=== PATIENT | female | born 1965 | race Caucasian/White ===

== ENCOUNTER → 2016-12-11 | Outpatient (CLI) | payer OTHER ==
[~2016-12-11] MED LIST: CELE20TA PO; CYCL10TA PO; GABA-279 PO; IBUP80TA PO; TRAZ50TA4 PO
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
== END ==
LOC: M PAIN 10:20
PROVIDERS: ATTEND Nurse Practitioner Family
DX: Z09 Encounter for follow-up examination after completed treatment for conditions other than malignant neoplasm (principal); M79.7 Fibromyalgia; M54.5 Low back pain; M50.30 Other cervical disc degeneration, unspecified cervical region; M50.20 Other cervical disc displacement, unspecified cervical region; E03.9 Hypothyroidism, unspecified; Z78.0 Asymptomatic menopausal state; M19.90 Unspecified osteoarthritis, unspecified site; G47.30 Sleep apnea, unspecified; Z88.5 Allergy status to narcotic agent; Z88.8 Allergy status to other drugs, medicaments and biological substances; Z79.899 Other long term (current) drug therapy; Z91.411 Personal history of adult psychological abuse; Z91.410 Personal history of adult physical and sexual abuse

== ENCOUNTER → 2016-12-31 | Outpatient (REF) | payer OTHER | LOC: M LAB REF 16:35 | PROVIDERS: ATTEND Physician Assistant | DX: N39.0 Urinary tract infection, site not specified (principal) ==

== ENCOUNTER → 2017-02-05 | Outpatient (REF) | payer OTHER ==
[2017-02-05 12:13] LABS: BASO % 0.7 % (0.0-1.0); EOS # 0.2 K/mm3 (0.0-0.50); EOS % 2.8 % (0.0-3.0); LARGE UNSTAINED CELL # 0.1 K/mm3 (0.0-0.4); LYMPH # 1.9 K/mm3 (1.5-4.5); LYMPH % 28.7 % (24.0-44.0); MEAN CORPUSCULAR HEMOGLOBIN 28.1 pg (27.0-33.0); MEAN CORPUSCULAR HGB CONC 32.1 g/dl (32.0-36.5); MEAN CORPUSCULAR VOLUME 87.7 fl (80.0-96.0); MONO # 0.4 K/mm3 (0.0-0.8); MONO % 5.3 % (0.0-5.0); NEUTROPHILS % 60.5 % (36.0-66.0); PLATELET COUNT, AUTOMATED 314 k/mm3 (150-450); RED CELL DISTRIBUTION WIDTH 14.4 % (11.5-14.5); WHITE BLOOD COUNT 6.6 K/mm3 (4.0-10.0)
[2017-02-05 12:44] LABS: ANION GAP 4 MEQ/L (8-16); BLOOD UREA NITROGEN 11 MG/DL (7-18); CALCIUM LEVEL 9.2 MG/DL (8.5-10.1); CARBON DIOXIDE LEVEL 30 MEQ/L (21-32); CHLORIDE LEVEL 106 MEQ/L (98-107); CREATININE FOR GFR 0.93 MG/DL (0.55-1.02); FREE T4 0.79 NG/DL (0.76-1.46); GLOMERULAR FILTRATION RATE > 60.0 (>51); GLUCOSE, FASTING 86 MG/DL (70-105); POTASSIUM SERUM 4.6 MEQ/L (3.5-5.1); SODIUM LEVEL 140 MEQ/L (136-145)
[2017-02-05 14:26] LABS: HIV SCRN NEGATIVE (NEGATIVE); HIV SCRN1 NEGATIVE (NEGATIVE)
[2017-02-05 14:27] LABS: CONTROL LINE INT CTR LINE PRESENT
== END ==
LOC: M SFHCPLAZ 08:50
PROVIDERS: ATTEND Nurse Practitioner Family
DX: G47.33 Obstructive sleep apnea (adult) (pediatric) (principal); E03.9 Hypothyroidism, unspecified; Z20.6 Contact with and (suspected) exposure to human immunodeficiency virus [HIV]

== ENCOUNTER → 2017-03-14 | Outpatient (CLI) | payer OTHER ==
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
== END ==
LOC: M PAIN 11:00
PROVIDERS: ATTEND Nurse Practitioner Family
DX: M79.1 Myalgia (principal); M54.5 Low back pain; M50.30 Other cervical disc degeneration, unspecified cervical region; E32.9 Disease of thymus, unspecified; E03.9 Hypothyroidism, unspecified; Z79.899 Other long term (current) drug therapy; Z88.8 Allergy status to other drugs, medicaments and biological substances; G47.33 Obstructive sleep apnea (adult) (pediatric)

== ENCOUNTER → 2017-06-12 | Outpatient (CLI) | payer OTHER ==
[~2017-06-12] MED LIST changes: +TRAZ50TA11 PO; -TRAZ50TA4 PO
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
== END ==
LOC: M PAIN 15:00
PROVIDERS: ATTEND Nurse Practitioner Family
DX: M79.1 Myalgia (principal); M54.5 Low back pain; M50.30 Other cervical disc degeneration, unspecified cervical region; Z79.899 Other long term (current) drug therapy; F17.210 Nicotine dependence, cigarettes, uncomplicated; Z88.6 Allergy status to analgesic agent; Z88.8 Allergy status to other drugs, medicaments and biological substances; Z88.5 Allergy status to narcotic agent

== ENCOUNTER → 2017-08-06 | Outpatient (CLI) | payer OTHER ==
[~2017-08-06] MED LIST changes: +BUPIVACAINE HCL 0.25% 10 ML VIAL As Ordered ONE; +BUPIVACAINE HCL 0.25% 30 ML VIAL As Ordered ONE; +TRIAMCINOLONE ACETONIDE SUSP 40 MG/ML VIAL (J3301) As Ordered ONE
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
== END ==
LOC: M PAIN 15:15
PROVIDERS: ATTEND Anesthesiology
DX: G89.29 Other chronic pain (principal); M79.1 Myalgia; Z79.899 Other long term (current) drug therapy; G47.30 Sleep apnea, unspecified; M19.90 Unspecified osteoarthritis, unspecified site; E03.9 Hypothyroidism, unspecified; F32.9 Major depressive disorder, single episode, unspecified; M50.30 Other cervical disc degeneration, unspecified cervical region; Z88.6 Allergy status to analgesic agent; Z88.5 Allergy status to narcotic agent; Z20.6 Contact with and (suspected) exposure to human immunodeficiency virus [HIV]
CPT/HCPCS: 20553; J3301

== ENCOUNTER → 2017-08-23 | Outpatient (REF) | payer OTHER ==
[~2017-08-23] MED LIST changes: -BUPIVACAINE HCL 0.25% 10 ML VIAL As Ordered ONE; -BUPIVACAINE HCL 0.25% 30 ML VIAL As Ordered ONE; -TRIAMCINOLONE ACETONIDE SUSP 40 MG/ML VIAL (J3301) As Ordered ONE
== END ==
LOC: M SFHCPLAZ 11:49
PROVIDERS: ATTEND Family Medicine
DX: D23.72 Other benign neoplasm of skin of left lower limb, including hip (principal)

== ENCOUNTER → 2017-09-12 | Outpatient (CLI) | payer OTHER ==
[2017-09-12 15:05] LABS: BASO % 0.6 % (0.0-1.0); EOS # 0.1 10^3/uL (0.0-0.50); EOS % 1.1 % (0.0-3.0); IMMATURE GRANULOCYTE % 0.1 % (0-0); LYMPH # 1.6 10^3/uL (1.5-4.5); LYMPH % 22.8 % (24.0-44.0); MEAN CORPUSCULAR HEMOGLOBIN 30.1 pg (27.0-33.0); MEAN CORPUSCULAR HGB CONC 33.4 g/dl (32.0-36.5); MEAN CORPUSCULAR VOLUME 90.2 fl (80.0-96.0); MONO # 0.4 10^3/uL (0.0-0.8); MONO % 5.3 % (0.0-5.0); NEUTROPHILS # 5.1 10^3/uL (1.8-7.7); NEUTROPHILS % 70.1 % (36.0-66.0); PLATELET COUNT, AUTOMATED 349 10^3/uL (150-450); RED CELL DISTRIBUTION WIDTH 14.2 % (11.5-14.5); WHITE BLOOD COUNT 7.2 10^3/uL (4.0-10.0)
[2017-09-12 15:28] LABS: ALBUMIN/GLOBULIN RATIO 1.18 (1.00-1.93); ALKALINE PHOSPHATASE 91 U/L (45-117); ALT/SGPT 23 U/L (12-78); ANION GAP 8 MEQ/L (8-16); AST/SGOT 9 U/L (15-37); BILIRUBIN,TOTAL 0.2 MG/DL (0.2-1.0); BLOOD UREA NITROGEN 9 MG/DL (7-18); CALCIUM LEVEL 9.2 MG/DL (8.5-10.1); CARBON DIOXIDE LEVEL 25 MEQ/L (21-32); CHLORIDE LEVEL 105 MEQ/L (98-107); CHOLESTEROL LEVEL 234 MG/DL (<200); CREATININE FOR GFR 0.87 MG/DL (0.55-1.02); GLOMERULAR FILTRATION RATE > 60.0 (>51); GLUCOSE, FASTING 106 MG/DL (70-105); POTASSIUM SERUM 4.3 MEQ/L (3.5-5.1); SODIUM LEVEL 138 MEQ/L (136-145); TOTAL PROTEIN 7.4 GM/DL (6.4-8.2); TRIGLYCERIDES LEVEL 383 MG/DL (<150)
== END ==
LOC: M LAB 14:16
PROVIDERS: ATTEND Nurse Practitioner Family
DX: Z20.6 Contact with and (suspected) exposure to human immunodeficiency virus [HIV] (principal); R53.83 Other fatigue; Z13.220 Encounter for screening for lipoid disorders; Z13.1 Encounter for screening for diabetes mellitus

== ENCOUNTER → 2017-10-14 | Outpatient (REF) | payer OTHER | LOC: M SFHCPLAZ 08:36 | PROVIDERS: ATTEND Nurse Practitioner Family | DX: Z20.6 Contact with and (suspected) exposure to human immunodeficiency virus [HIV] (principal); E03.9 Hypothyroidism, unspecified; Z53.9 Procedure and treatment not carried out, unspecified reason ==

== ENCOUNTER → 2017-10-23 | Outpatient (CLI) | payer OTHER ==
[2017-10-23 14:27] LABS: ALBUMIN 3.8 GM/DL (3.2-5.2); ALBUMIN/GLOBULIN RATIO 1.15 (1.00-1.93); ALKALINE PHOSPHATASE 79 U/L (45-117); ALT/SGPT 26 U/L (12-78); ANION GAP 7 MEQ/L (8-16); AST/SGOT 16 U/L (7-37); BILIRUBIN,TOTAL 0.3 MG/DL (0.2-1.0); BLOOD UREA NITROGEN 10 MG/DL (7-18); CARBON DIOXIDE LEVEL 26 MEQ/L (21-32); CHLORIDE LEVEL 105 MEQ/L (98-107); CHOLESTEROL LEVEL 176 MG/DL (<200); CREATININE FOR GFR 0.94 MG/DL (0.55-1.02); FREE T4 0.77 NG/DL (0.76-1.46); GLOMERULAR FILTRATION RATE > 60.0 (>51); GLUCOSE, FASTING 84 MG/DL (70-105); POTASSIUM SERUM 4.3 MEQ/L (3.5-5.1); SODIUM LEVEL 138 MEQ/L (136-145); TOTAL PROTEIN 7.1 GM/DL (6.4-8.2); TRIGLYCERIDES LEVEL 208 MG/DL (<150)
== END ==
LOC: M LAB 13:04
PROVIDERS: ATTEND Nurse Practitioner Family
DX: Z20.6 Contact with and (suspected) exposure to human immunodeficiency virus [HIV] (principal)

== ENCOUNTER → 2017-11-11 | Outpatient (CLI) | payer OTHER ==
--- NOTE | 2017-11-13 01:44 | ECWPNPC ---
PATIENT NAME: ARNAV SPEARS : 1965 GENDER: FEMALE VISIT DATE: 11/11/2017 DISCHARGE DATE: 11/11/17 1222 VISIT LOCKED DATE TIME: PHYSICIAN: DIANNA YOUNG RESOURCE: DIANNA YOUNG REASON FOR APPOINTMENT 1. BACK AND SHOULDER HISTORY OF PRESENT ILLNESS HISTORY OF PRESENT ILLNESS: PAIN THE PATIENT DESCRIBES THE PAIN... FALL RISK SCREENING: SCREENING :NO FALLS IN THE PAST YEAR TODAY'S VISIT: NOTES: RATES PAIN TODAY 5/10. IS S/P TPI 08/06/17 TO BILATERAL SHOULDERS AND LEFT THORACIC REGION. DESCRIBES PAIN ACHING, SHARP TENDER , THROBBING AND SHOOTING. THIS WAS HELPFUL AND IMPROVED FLEXIBILITY. CURRENTLY NOTES INCREASED JOINT SWELLING AND JOINT PAIN. KNEES ARE THE WORST, FOLLOWED BY HIPS AND LOW BACK. CURRENT MEDICATIONS TAKING ATORVASTATIN CALCIUM 20 MG TABLET 1 TABLET ORALLY ONCE A DAY TAKING TRUVADA 200-300 MG TABLET 1 TAB ORALLY DAILY TAKING LEVOTHYROXINE SODIUM 75 MCG TABLET 1 TABLET ON AN EMPTY STOMACH IN THE MORNING ORALLY ONCE A DAY TAKING COLACE 100 MG CAPSULE 1 CAPSULE NEEDED ORALLY TWICE A DAY TAKING FLEXERIL 10 MG TABLET 1 TABLET ORALLY BEFORE BEDTIME NEEDED TAKING BETAMETHASONE VALERATE 0.1 % OINTMENT 1 APPLICATION TO AFFECTED AREA EXTERNALLY ONCE A DAY TAKING MELOXICAM 7.5 MG TABLET 1 TABLET ORALLY ONCE A DAY TAKING GABAPENTIN 300 MG TABLET 1 TABLET ORALLY BEFORE BEDTIME TAKING CELEXA 40 MG TABLET 1 TABLET ORALLY ONCE A DAY MEDICATION LIST REVIEWED AND RECONCILED WITH THE PATIENT PAST MEDICAL HISTORY SLEEP APNEA: BIPAP: ANAMIKA VIGIL PULMONOLOGY FIBROMYALGIA HX DYSPLASIA BENIGN RIGHT AND LEFT BREAST LUMPS RUPTURED LEFT OVARIAN CYST (08/13) PERIMENOPAUSE 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 BULGING DISCS IN THE NECK ARTHRITIS HYPOTHYROIDISM ALLERGIES NAPROXEN: HIVES: ALLERGY EFFEXOR XR: DIZZINESS, HAS, FLUSHING, NAUSEA, SHAKINESS : SIDE EFFECTS VICODIN: NAUSEA/VOMITING: SIDE EFFECTS SOCIAL HISTORY GENERAL: TOBACCO USE ARE YOU A:CURRENT SMOKER ARE YOU INTERESTED IN QUITTING?NOT READY TO QUIT COUNSELED THE PATIENT ON SMOKING EFFECTS, EDUCATION [id number]/29/2017 HOW MANY CIGARETTES A DAY DO YOU SMOKE?6-10 HOW SOON AFTER YOU WAKE UP DO YOU SMOKE YOUR FIRST CIGARETTE?WITHIN 5 MIN HOW OFTEN DO YOU SMOKE CIGARETTES?EVERY DAY PATIENT COUNSELED ON THE DANGERS OF TOBACCO USE AND URGED TO QUIT:10/30/2017 LUNG CANCER SCREENING SMOKING STATUS:CURRENT SMOKER IS THE PATIENT BETWEEN THE AGE OF 54 AND 76?NO BMI CARE GOAL FOLLOW-UP ABOVE NORMAL BMI FOLLOW-UPLIFESTYLE EDUCATION REGARDING DIET ALCOHOL SCREENING DID YOU HAVE A DRINK CONTAINING ALCOHOL IN THE PAST YEAR?YES HOW OFTEN DID YOU HAVE SIX OR MORE DRINKS ON ONE OCCASION IN THE PAST YEAR?NEVER (0 POINTS) HOW MANY DRINKS DID YOU HAVE ON A TYPICAL DAY WHEN YOU WERE DRINKING IN THE PAST YEAR?1 OR 2 (0 POINTS) HOW OFTEN DID YOU HAVE A DRINK CONTAINING ALCOHOL IN THE PAST YEAR?MONTHLY OR LESS (1 POINT) POINTS1 INTERPRETATIONNEGATIVE RECREATIONAL DRUG USE DRUG USE?YES MARIJUANA, DAILY AT BEDTIME CAFFEINE CAFFEINE USE?YES ICED TEA ALL DAY OCCASIONAL COFFEE SEXUAL HX HAD SEX IN THE LAST 12 MONTHS (VAGINAL, ORAL, OR ANAL)?YES WITHMEN ONLY USE PROTECTION?NO PREVENTION STRATEGIES DISCUSSED:OTHER HAVE YOU EVER HAD AN STD?NO HIV / HEP-C SCREENING HIV TEST OFFERED TO PATIENT:YES DATE OFFERED:12/20/2016 TEST ACCEPTED:NO HAS BEEN TESTED HEP-C TEST OFFERED TO PATIENT:YES DATE OFFERED:12/20/2016 REASON: SEES DR. 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 DIET: REGULAR. EXERCISE: WALKS. MARITAL STATUS: SINGLE. OTHERS AT HOME: SIGNIFICANT OTHER. CHRISTIANITY [id number] TAOIST LANGUAGE LANGUAGES SPOKEN:SAMI LEARNING BARRIERS / SPECIAL NEEDS CHANGE FROM LAST VISIT?NO BARRIERS TO LEARNING?NO HEARING IMPAIRED?NO VISION IMPAIRED?YES :CORRECTIVE LENSES COGNITIVELY IMPAIRED?NO READINESS TO LEARN?YES LEARNING PREFERENCES?NO LEARNING CAPABILITIES PRESENT?YES EMOTIONAL BARRIERS?NO SPECIAL DEVICES?YES :BRACE LEFT KNEE BRACE WAXER NEEDED?NO NEW PATIENT PAIN DIARY TODAY'S VISIT NOTES, FROM 0-10, WHAT LEVEL IS YOUR PAIN TODAY? 0, TODAY'S VISIT NOTES, FROM 0-10, WHAT LEVEL IS YOUR PAIN TODAY? 0, TODAY'S VISIT NOTES, FROM 0-10, WHAT LEVEL IS YOUR PAIN TODAY? 0. PAIN CLINIC PFS, CLERGY, PUBLIC HEALTH REFERRALS PFS REFERRAL NEEDED?NO CLERGY REFERRAL NEEDED?NO PUBLIC HEALTH REFERRAL NEEDED?NO HAS THE PATIENT BEEN EDUCATED REGARDING HIS/HER PLAN OF CARE?YES HAS THE PATIENT BEEN EDUCATED REGARDING PAIN, THE RISK FOR PAIN, THE IMPORTANCE OF EFFECTIVE PAIN MANAGEMENT, AND THE PAIN ASSESSMENT PROCESS?YES REVIEW OF SYSTEMS REVIEWED BY: PROVIDER: . CONSTITUTIONAL: ANY CHANGE IN YOUR MEDICAL CONDITION? NO . CHILLS NO . FEVER NO . INFECTION: DO YOU HAVE NEW INFECTIONS? NO . DO YOU HAVE HISTORY OF MRSA? NO . MUSCULOSKELETAL: ANY NEW PATTERNS OF PAIN OR NUMBNESS? NO . GASTROENTEROLOGY: ANY NEW CHANGE IN BOWEL CONTROL? NO . GENITOURINARY: ANY NEW CHANGE IN BLADDER CONTROL? NO . IS THERE A CHANCE YOU COULD BE ? NO . HEMATOLOGY/LYMPH: DO YOU TAKE ANY BLOOD THINNERS? (FOR EXAMPLE- COUMADIN, PLAVIX, AGGRENOX, PLATEL, PRADAXA, OR XARELTO) NO . WHEN WAS YOUR LAST DOSE? DATE: TIME: . NEUROLOGY: HAVE YOU FALLEN IN THE PAST 6 MONTHS? NO . ANY NEW EXTREMITY NUMBNESS OR WEAKNESS? NO . CARDIOLOGY: DO YOU HAVE A PACEMAKER OR DEFIBRILLATOR? NO . RESPIRATORY: HAVE YOU BEEN SICK IN THE PAST WEEK? NO . FEVER NO . FLU LIKE SYMPTOMS? NO . COUGH NO . INTEGUMENTARY: DO YOU HAVE ANY RASHES OR OPEN SORES? NO . ALLERGIC/IMMUNO: ARE YOU ALLERGIC TO SHELLFISH OR IV DYE? NO . ANY NEW ALLERGIES? NO . PSYCHIATRIC: DO YOU HAVE THOUGHTS OF HURTING YOURSELF OR SOMEONE ELSE? NO . ARE YOU ABUSED, NEGLECTED, OR IN AN UNSAFE ENVIRONMENT? NO . ENDOCRINOLOGY: ARE YOU DIABETIC? NO . OTHER: DO YOU NEED ANY PRESCRIPTIONS? YES . IF YES, PLEASE LIST: GABAPENTIN . ANY NEW PROBLEMS WITH YOUR MEDICATIONS? NO . WHEN DID YOU LAST EAT? ____ . WHEN DID YOU LAST DRINK? ____ . WHAT DID YOU LAST DRINK? ____ . NAME OF PERSON DRIVING YOU HOME? ____ . DO YOU HAVE ANY OTHER QUESTIONS OR CONCERNS INCREASE LOW BACK PAIN AND SORE / PAIN IN HIPS . VITAL SIGNS WT 169.4 LBS, HT 64 IN, BMI 29.07 INDEX, BP 140/82 MM HG, HR 63 /MIN, RR 18 /MIN, TEMP 97.2 F, OXYGEN SAT % 94%, NA INITIALS TL 1145. EXAMINATION GENERAL EXAMINATION: PSYCHALERT , ORIENTED X 3 , APPROPRIATE MOOD AND AFFECT . LUNGS:CLEAR TO AUSCULTATION BILATERALLY . HEART:HEART RATE REGULAR . MUSCULOSKELETAL:MUSCLE STRENGTH TESTING 5/5 MILD TENDERNESSS OVER LUMBAR SPINOUS PROCESSES. MINIMAL TENDERNESS AND TIGHTNESS ALONG THORACIC PARAVERTEBRAL MUSCLES. , TRIGGER POINTS AND TIGHT FIBROUS BANDS IDENTIFIED OVER LUMBAR PARAVERTEBRAL MUSCLES AND ACROSS THE SACRUM. . JOINTS:RIGHT , KNEE , PAIN , SWELLING ALONG MEDIAL ASPECT.. ASSESSMENTS MYALGIA - M79.1 (PRIMARY) LOW BACK PAIN - M54.5 DEGENERATIVE DISC DISEASE, CERVICAL - M50.30 TREATMENT MYALGIA REFILL GABAPENTIN TABLET, 300 MG, 1 TABLET, ORALLY, BID, 30 DAY(S), 60 TABLET, REFILLS 3 TRIGGER POINT 3 + DIANNA YOST 11/11/2017 12:10:06 PM > LOW BACK NOTES: CONTINUE WITH ORTHOPEDICS - DO PHYSICAL THERAPY FOR KNEES. PREVENTIVE MEDICINE REVIEWED PRE PROCEDURE CARE WITH UNDERSTANDING EXPRESSED. PT HAS HAD TPI BEFORE AND KNOWS WHAT TO EXPECT. DISPOSITION & COMMUNICATION FOLLOW UP AFTER INJECTIONS (REASON: CHECK AUTH FOR TPI/BACK) ELECTRONICALLY SIGNED BY URSZULA MARTINEZ ON 11/11/2017 AT 12:51 PM EST DISCLAIMER : THIS IS A VISIT SUMMARY EXTRACTED FROM THE [employer] CHART. IT IS NOT A COPY OF THE [employer] PROGRESS NOTE. DAVONTE
== END ==
LOC: M PAIN 11:30
PROVIDERS: ATTEND Nurse Practitioner Family
DX: G89.29 Other chronic pain (principal); M54.5 Low back pain; M50.30 Other cervical disc degeneration, unspecified cervical region; M79.1 Myalgia; F32.9 Major depressive disorder, single episode, unspecified; G47.33 Obstructive sleep apnea (adult) (pediatric); E03.9 Hypothyroidism, unspecified; E78.5 Hyperlipidemia, unspecified; F17.210 Nicotine dependence, cigarettes, uncomplicated; Z88.5 Allergy status to narcotic agent; Z88.8 Allergy status to other drugs, medicaments and biological substances; Z79.899 Other long term (current) drug therapy

== ENCOUNTER → 2017-12-03 | Outpatient (CLI) | payer OTHER ==
[~2017-12-03] MED LIST changes: +BUPIVACAINE HCL 0.25% 10 ML VIAL As Ordered; +BUPIVACAINE HCL 0.25% 30 ML VIAL As Ordered; -CELE20TA PO; -CYCL10TA PO; -GABA-279 PO; -IBUP80TA PO; -TRAZ50TA11 PO; +TRIAMCINOLONE ACETONIDE SUSP 40 MG/ML VIAL (J3301) As Ordered; +diazePAM 5 MG TAB As Ordered; +oxyCODONE 5MG TAB As Ordered
== END ==
LOC: M PAIN 13:45
DX: G89.29 Other chronic pain (principal); M54.2 Cervicalgia; M54.5 Low back pain; M79.1 Myalgia; G47.30 Sleep apnea, unspecified; M19.90 Unspecified osteoarthritis, unspecified site; E03.9 Hypothyroidism, unspecified; F17.210 Nicotine dependence, cigarettes, uncomplicated; Z88.5 Allergy status to narcotic agent; Z88.8 Allergy status to other drugs, medicaments and biological substances; Z79.899 Other long term (current) drug therapy
CPT/HCPCS: J3301

== ENCOUNTER → 2017-12-26 | Outpatient (CLI) | payer OTHER | LOC: M PAIN 13:00 | DX: M54.5 Low back pain (principal); M50.30 Other cervical disc degeneration, unspecified cervical region; M79.1 Myalgia; G47.30 Sleep apnea, unspecified; M19.90 Unspecified osteoarthritis, unspecified site; E03.9 Hypothyroidism, unspecified; F17.210 Nicotine dependence, cigarettes, uncomplicated; Z88.5 Allergy status to narcotic agent; Z88.8 Allergy status to other drugs, medicaments and biological substances; Z79.899 Other long term (current) drug therapy; Z91.411 Personal history of adult psychological abuse; Z91.410 Personal history of adult physical and sexual abuse | CPT/HCPCS: G0463 ==

== ENCOUNTER → 2018-01-14 | Outpatient (REF) | payer OTHER ==
[2018-01-14 19:37] LABS: APPEARANCE, URINE CLOUDY (CLEAR); BACTERIA, URINE AUTO 1+ (NEGATIVE); BILIRUBIN, URINE AUTO NEGATIVE (NEGATIVE); BLOOD, URINE BLOOD 3+ (NEGATIVE); COLOR, URINE YELLOW (YELLOW); GLUCOSE, URINE (UA) AUTO NEGATIVE (NEGATIVE); KETONE, URINE AUTO NEGATIVE (NEGATIVE); LEUKOCYTE ESTERASE, URINE AUTO 3+ (NEGATIVE); MUCUS, URINE SMALL (NEGATIVE); NITRITE, URINE AUTO NEGATIVE (NEGATIVE); PROTEIN, URINE AUTO 1+ mg/dL (NEGATIVE); RBC, URINE AUTO TNTC /HPF (0-3); SPECIFIC GRAVITY URINE AUTO 1.014 (1.002-1.035); SQUAMOUS EPITHELIAL CELL UR AU 1 /HPF (0-6); UROBILINOGEN, URINE AUTO 0.2 mg/dL (0.0-2.0); WBC, URINE AUTO TNTC /HPF (0-3)
== END ==
LOC: M LAB REF 16:54
DX: N39.0 Urinary tract infection, site not specified (principal)
CPT/HCPCS: 81001

== ENCOUNTER → 2018-01-22 | Outpatient (REF) | payer OTHER ==
[2018-01-22 14:21] LABS: HIV 1&2 SCREEN CENTAUR NEGATIVE (NEGATIVE)
[2018-01-22 14:40] LABS: ALBUMIN 3.9 GM/DL (3.2-5.2); ALBUMIN/GLOBULIN RATIO 1.34 (1.00-1.93); ALKALINE PHOSPHATASE 85 U/L (45-117); ALT/SGPT 42 U/L (12-78); ANION GAP 7 MEQ/L (8-16); AST/SGOT 31 U/L (7-37); BILIRUBIN,TOTAL 0.2 MG/DL (0.2-1.0); BLOOD UREA NITROGEN 17 MG/DL (7-18); CALCIUM LEVEL 8.9 MG/DL (8.5-10.1); CARBON DIOXIDE LEVEL 30 MEQ/L (21-32); CHLORIDE LEVEL 102 MEQ/L (98-107); CREATININE FOR GFR 0.81 MG/DL (0.55-1.30); FREE T4 0.84 NG/DL (0.76-1.46); GLOMERULAR FILTRATION RATE > 60.0 (>51); GLUCOSE, FASTING 88 MG/DL (70-100); POTASSIUM SERUM 4.3 MEQ/L (3.5-5.1); SODIUM LEVEL 139 MEQ/L (136-145); TOTAL PROTEIN 6.8 GM/DL (6.4-8.2)
== END ==
LOC: M SFHCPLAZ 09:46
DX: E78.5 Hyperlipidemia, unspecified (principal); E03.9 Hypothyroidism, unspecified; Z20.6 Contact with and (suspected) exposure to human immunodeficiency virus [HIV]
CPT/HCPCS: 84443

== ENCOUNTER → 2018-03-25 | Outpatient (REF) | payer OTHER ==
[2018-03-27 14:13] LABS: HPV HYBRID CAPTURE II Negative (Negative)
== END ==
LOC: M SFHCWAGY 15:21
DX: Z12.4 Encounter for screening for malignant neoplasm of cervix (principal)

== ENCOUNTER → 2018-03-25 | Outpatient (CLI) | payer OTHER | LOC: M WHC 14:28 | DX: Z12.31 Encounter for screening mammogram for malignant neoplasm of breast (principal) | CPT/HCPCS: 77067 ==

== ENCOUNTER → 2018-04-18 | Outpatient (REF) | payer OTHER ==
[2018-04-18 18:32] LABS: APPEARANCE, URINE HAZY (CLEAR); BACTERIA, URINE AUTO 1+ (NEGATIVE); BILIRUBIN, URINE AUTO NEGATIVE (NEGATIVE); BLOOD, URINE BLOOD NEGATIVE (NEGATIVE); COLOR, URINE YELLOW (YELLOW); GLUCOSE, URINE (UA) AUTO NEGATIVE (NEGATIVE); KETONE, URINE AUTO NEGATIVE (NEGATIVE); LEUKOCYTE ESTERASE, URINE AUTO TRACE (NEGATIVE); MUCUS, URINE SMALL (NEGATIVE); NITRITE, URINE AUTO NEGATIVE (NEGATIVE); PROTEIN, URINE AUTO NEGATIVE (NEGATIVE); RBC, URINE AUTO 2 /HPF (0-3); SPECIFIC GRAVITY URINE AUTO 1.012 (1.002-1.035); SQUAMOUS EPITHELIAL CELL UR AU 3 /HPF (0-6); UROBILINOGEN, URINE AUTO 0.2 mg/dL (0.0-2.0); WBC, URINE AUTO 11 /HPF (0-3)
== END ==
LOC: M LAB REF 16:25
DX: N39.0 Urinary tract infection, site not specified (principal)
CPT/HCPCS: 81001

== ENCOUNTER → 2018-04-24 | Outpatient (CLI) | payer OTHER | LOC: M PAIN 11:00 | DX: M79.1 Myalgia (principal); M54.5 Low back pain; M50.30 Other cervical disc degeneration, unspecified cervical region; G47.30 Sleep apnea, unspecified; M19.90 Unspecified osteoarthritis, unspecified site; E03.9 Hypothyroidism, unspecified; F17.210 Nicotine dependence, cigarettes, uncomplicated; Z79.899 Other long term (current) drug therapy; Z88.5 Allergy status to narcotic agent; Z88.8 Allergy status to other drugs, medicaments and biological substances | CPT/HCPCS: G0463 ==

== ENCOUNTER → 2018-05-23 | Outpatient (CLI) | payer OTHER ==
[~2018-05-23] MED LIST changes: -diazePAM 5 MG TAB As Ordered; -oxyCODONE 5MG TAB As Ordered
== END ==
LOC: M PAIN 10:30
DX: G89.29 Other chronic pain (principal); M79.1 Myalgia; M54.2 Cervicalgia; M25.511 Pain in right shoulder; M25.512 Pain in left shoulder; M54.6 Pain in thoracic spine; M54.5 Low back pain; G47.30 Sleep apnea, unspecified; M19.90 Unspecified osteoarthritis, unspecified site; E03.9 Hypothyroidism, unspecified; F17.210 Nicotine dependence, cigarettes, uncomplicated; Z79.899 Other long term (current) drug therapy; Z88.5 Allergy status to narcotic agent; Z88.8 Allergy status to other drugs, medicaments and biological substances
CPT/HCPCS: J3301

== ENCOUNTER → 2018-05-23 | Outpatient (CLI) | payer OTHER ==
[2018-05-23 14:29] LABS: CHOLESTEROL LEVEL 140 MG/DL (<200); CHOLESTEROL RISK RATIO 3.414 (<5); HDL CHOLESTEROL 41 MG/DL (>40); LDL CHOLESTEROL 53.4 MG/DL (<100); NON-HDL-C 99 MG/DL; TRIGLYCERIDES LEVEL 228 MG/DL (<150)
[2018-05-23 15:10] LABS: HIV 1&2 SCREEN CENTAUR NEGATIVE (NEGATIVE)
[2018-05-23 15:57] LABS: BASO # 0.1 10^3/uL (0.0-0.2); BASO % 0.6 % (0.0-1.0); EOS # 0.2 10^3/uL (0.0-0.50); EOS % 2.4 % (0.0-3.0); HEMATOCRIT 37.4 % (36.0-47.0); HEMOGLOBIN 12.4 g/dl (12.0-15.5); IMMATURE GRANULOCYTE % 0.4 % (0-3.0); LYMPH # 1.6 10^3/uL (1.5-4.5); LYMPH % 20.3 % (24.0-44.0); MEAN CORPUSCULAR HEMOGLOBIN 30.5 pg (27.0-33.0); MEAN CORPUSCULAR HGB CONC 33.2 g/dl (32.0-36.5); MEAN CORPUSCULAR VOLUME 92.1 fl (80.0-96.0); MONO # 0.4 10^3/uL (0.0-0.8); MONO % 5.1 % (0.0-5.0); NEUTROPHILS # 5.7 10^3/uL (1.8-7.7); NEUTROPHILS % 71.2 % (36.0-66.0); PLATELET COUNT, AUTOMATED 319 10^3/uL (150-450); RED BLOOD COUNT 4.06 10^6/uL (4.00-5.40); RED CELL DISTRIBUTION WIDTH 13.3 % (11.5-14.5)
== END ==
LOC: M LAB 13:07
DX: R07.9 Chest pain, unspecified (principal)
CPT/HCPCS: 93005

== ENCOUNTER → 2018-10-06 | Outpatient (CLI) | payer OTHER | LOC: M PAIN 11:00 | DX: M79.18 Myalgia, other site (principal); M54.5 Low back pain; M50.30 Other cervical disc degeneration, unspecified cervical region; M19.90 Unspecified osteoarthritis, unspecified site; E03.9 Hypothyroidism, unspecified; G47.30 Sleep apnea, unspecified; F17.210 Nicotine dependence, cigarettes, uncomplicated; Z79.899 Other long term (current) drug therapy; Z88.5 Allergy status to narcotic agent; Z88.8 Allergy status to other drugs, medicaments and biological substances | CPT/HCPCS: G0463 ==

== ENCOUNTER → 2018-10-28 | Outpatient (CLI) | payer OTHER ==
[~2018-10-28] MED LIST changes: -BUPIVACAINE HCL 0.25% 10 ML VIAL As Ordered
== END ==
LOC: M PAIN 14:00
DX: M79.18 Myalgia, other site (principal); M54.6 Pain in thoracic spine; M54.5 Low back pain; E03.9 Hypothyroidism, unspecified; M19.90 Unspecified osteoarthritis, unspecified site; G47.30 Sleep apnea, unspecified; F17.210 Nicotine dependence, cigarettes, uncomplicated; Z79.899 Other long term (current) drug therapy; Z88.5 Allergy status to narcotic agent; Z88.8 Allergy status to other drugs, medicaments and biological substances
CPT/HCPCS: J3301

== ENCOUNTER → 2018-12-18 | Outpatient (CLI) | payer OTHER ==
[~2018-12-18] MED LIST changes: -BUPIVACAINE HCL 0.25% 30 ML VIAL As Ordered; +CELE20TA PO; +CYCL10TA PO; +GABA-1171 PO; +IBUP80TA PO; +TRAZ-160 PO; -TRIAMCINOLONE ACETONIDE SUSP 40 MG/ML VIAL (J3301) As Ordered
[2018-12-18 16:18] LABS: BASO % 0.5 % (0.0-1.0); EOS # 0.1 10^3/uL (0.0-0.50); EOS % 0.9 % (0.0-3.0); HEMATOCRIT 37.3 % (36.0-47.0); HEMOGLOBIN 12.7 g/dl (12.0-15.5); LYMPH # 1.3 10^3/uL (1.5-4.5); LYMPH % 14.7 % (24.0-44.0); MEAN CORPUSCULAR HEMOGLOBIN 31.3 pg (27.0-33.0); MEAN CORPUSCULAR VOLUME 91.9 fl (80.0-96.0); MONO # 0.5 10^3/uL (0.0-0.8); MONO % 5.9 % (0.0-5.0); NEUTROPHILS # 6.7 10^3/uL (1.8-7.7); NEUTROPHILS % 77.7 % (36.0-66.0); PLATELET COUNT, AUTOMATED 339 10^3/uL (150-450); RED BLOOD COUNT 4.06 10^6/uL (4.00-5.40); WHITE BLOOD COUNT 8.7 10^3/uL (4.0-10.0)
[2018-12-18 16:39] LABS: ALBUMIN 3.8 GM/DL (3.2-5.2); ALT/SGPT 18 U/L (12-78); BILIRUBIN,TOTAL 0.2 MG/DL (0.2-1.0); BLOOD UREA NITROGEN 10 MG/DL (7-18); CALCIUM LEVEL 8.8 MG/DL (8.5-10.1); CARBON DIOXIDE LEVEL 29 MEQ/L (21-32); CHLORIDE LEVEL 102 MEQ/L (98-107); CREATININE FOR GFR 0.84 MG/DL (0.55-1.30); GLOMERULAR FILTRATION RATE > 60.0 (>51); GLUCOSE, FASTING 88 MG/DL (70-100); POTASSIUM SERUM 4.7 MEQ/L (3.5-5.1); SODIUM LEVEL 139 MEQ/L (136-145); TOTAL PROTEIN 7.2 GM/DL (6.4-8.2)
[2018-12-19 11:11] LABS: HIV 1&2 SCREEN CENTAUR NEGATIVE (NEGATIVE)
== END ==
LOC: M LAB 15:33
PROVIDERS: ATTEND Internal Medicine Infectious Disease
DX: Z20.6 Contact with and (suspected) exposure to human immunodeficiency virus [HIV] (principal)

== ENCOUNTER → 2019-01-05 | Outpatient (CLI) | payer OTHER ==
--- NOTE | 2019-01-13 01:10 | ECWPNPC ---
PATIENT NAME: ARANV SPEARS : 1965 GENDER: FEMALE VISIT DATE: 01/05/2019 DISCHARGE DATE: 01/05/19 1532 VISIT LOCKED DATE TIME: PHYSICIAN: ASHISH LIMA RESOURCE: ASHISH LIMA REASON FOR APPOINTMENT 1. POST TPI HISTORY OF PRESENT ILLNESS HISTORY OF PRESENT ILLNESS: HERE FOR F/U OF CHRONIC LEFT SHOULDER AND LOW BACK PAIN.RATING PAIN VAS 7/10.HX OF CHRONIC LEFT SHOULDER/RHOMBOID PAIN.HAD TPI W/OUT STEROID RECENTLY WITHOUT IMPROVEMENT IN PAIN.HAS RESPONDED WELL TO TPI W STEROID IN PAST.OPTED OUT OF STEROID DUE TO BRONCHITIS AT TIME OF LAST INJECTION. PAIN THE PATIENT DESCRIBES THE PAIN... FALL RISK SCREENING: SCREENING :NO FALLS IN THE PAST YEAR CURRENT MEDICATIONS TAKING CYCLOBENZAPRINE HCL 10 MG TABLET 1 TABLET NEEDED ORALLY THREE TIMES A DAY TAKING MELOXICAM 7.5 MG TABLET 1 TABLET ORALLY ONCE A DAY TAKING LEVOTHYROXINE SODIUM 75 MCG TABLET 1 TABLET ORALLY ONCE A DAY TAKING CELEXA 40 MG TABLET 1 TABLET ORALLY ONCE A DAY TAKING ATORVASTATIN CALCIUM 20 MG TABLET 1 TABLET ORALLY ONCE A DAY TAKING TRUVADA 200-300 MG TABLET TAKE ONE TABLET BY MOUTH EVERY DAY TAKING GABAPENTIN 300 MG CAPSULE 1 CAPSULE ORALLY BID TAKING COLACE 100 MG CAPSULE 1 CAPSULE NEEDED ORALLY TWICE A DAY TAKING FLEXERIL 10 MG TABLET 2 TABLET ORALLY BEFORE BEDTIME NEEDED DISCONTINUED LEVOTHYROXINE SODIUM 50 MCG TABLET 1 TABLET ORALLY ONCE A DAY DISCONTINUED GABAPENTIN 300 MG TABLET 1 TABLET ORALLY BEFORE BEDTIME, NOTES: DUPLICATE DISCONTINUED TRUVADA 200-300 MG TABLET TAKE ONE TABLET BY MOUTH EVERY DAY ORALLY DAILY, NOTES: DUPLICATE MEDICATION LIST REVIEWED AND RECONCILED WITH THE PATIENT PAST MEDICAL HISTORY SLEEP APNEA: BIPAP: [employer], [employer]LO[employer] WORKER PULMONOLOGY FIBROMYALGIA HX DYSPLASIA BENIGN RIGHT AND LEFT BREAST LUMPS RUPTURED LEFT OVARIAN CYST (08/13) PERIMENOPAUSE 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 BULGING DISCS IN THE NECK ARTHRITIS HYPOTHYROIDISM SCOLIOSIS ALLERGIES NAPROXEN: HIVES: ALLERGY EFFEXOR XR: DIZZINESS, HAS, FLUSHING, NAUSEA, SHAKINESS : SIDE EFFECTS VICODIN: NAUSEA/VOMITING: SIDE EFFECTS SURGICAL HISTORY T & A BREAST BIOPSY, RIGHT X 2 BENIGN C SECTION ARTHROSCOPY KNEE SURGERY, LEFT LEEP BREAST BX, LEFT BENIGN DEVIATED SEPTUM REPAIR PALATEOPLASTY WISDOM TEETH SPINE INJECTIONS COLONOSCOPY 2012 FAMILY HISTORY FATHER: 72 YRS, SUICIDE, NO KNOWN MEDICAL PROBLEMS MOTHER: ALIVE 73 YRS, MIGRAINE, HTN, MELANOMA SIBLINGS: SISTER WITH MIGRAINE 2 BROTHER(S) , 1 SISTER(S) - HEALTHY. 1 SON(S) - HEALTHY. SOCIAL HISTORY GENERAL: TOBACCO USE ARE YOU A:CURRENT SMOKER ARE YOU INTERESTED IN QUITTING?NOT READY TO QUIT COUNSELED THE PATIENT ON SMOKING EFFECTS, EDUCATION [id number]/27/2018 HOW MANY CIGARETTES A DAY DO YOU SMOKE?6-10 HOW SOON AFTER YOU WAKE UP DO YOU SMOKE YOUR FIRST CIGARETTE?WITHIN 5 MIN HOW OFTEN DO YOU SMOKE CIGARETTES?EVERY DAY PATIENT COUNSELED ON THE DANGERS OF TOBACCO USE AND URGED TO QUIT:10/28/2018 LUNG CANCER SCREENING SMOKING STATUS:CURRENT SMOKER IS THE PATIENT BETWEEN THE AGE OF 54 AND 76?NO BMI CARE GOAL FOLLOW-UP ABOVE NORMAL BMI FOLLOW-UPLIFESTYLE EDUCATION REGARDING DIET ALCOHOL SCREENING DID YOU HAVE A DRINK CONTAINING ALCOHOL IN THE PAST YEAR?YES POINTS1 INTERPRETATIONNEGATIVE HOW OFTEN DID YOU HAVE A DRINK CONTAINING ALCOHOL IN THE PAST YEAR?MONTHLY OR LESS (1 POINT) HOW MANY DRINKS DID YOU HAVE ON A TYPICAL DAY WHEN YOU WERE DRINKING IN THE PAST YEAR?1 OR 2 (0 POINTS) HOW OFTEN DID YOU HAVE SIX OR MORE DRINKS ON ONE OCCASION IN THE PAST YEAR?NEVER (0 POINTS) RECREATIONAL DRUG USE DRUG USE?YES MARIJUANA, DAILY AT BEDTIME CAFFEINE CAFFEINE USE?YES ICED TEA ALL DAY OCCASIONAL COFFEE SEXUAL HX HAD SEX IN THE LAST 12 MONTHS (VAGINAL, ORAL, OR ANAL)?YES WITHMEN ONLY USE PROTECTION?NO PREVENTION STRATEGIES DISCUSSED:OTHER HAVE YOU EVER HAD AN STD?NO LMP:POST MENOPAUSE HIV / HEP-C SCREENING HIV TEST OFFERED TO PATIENT:YES DATE OFFERED:01/22/2018 TEST ACCEPTED:YES BROCHURE PROVIDED TO PATIENTYES HEP-C TEST OFFERED TO PATIENT:YES TEST ACCEPTED:NO REASON:PATIENT DECLINED PATIENT HAS BEEN TESTED HINDU [id number] BAHAI LANGUAGE LANGUAGES SPOKEN:ITALIAN EDUCATION LEVEL OF EDUCATION:FINISHED HIGH SCHOOL LEARNING BARRIERS / SPECIAL NEEDS CHANGE FROM LAST VISIT?NO BARRIERS TO LEARNING?NO HEARING IMPAIRED?NO VISION IMPAIRED?YES :CORRECTIVE LENSES COGNITIVELY IMPAIRED?NO READINESS TO LEARN?YES LEARNING PREFERENCES?NO LEARNING CAPABILITIES PRESENT?YES EMOTIONAL BARRIERS?NO SPECIAL DEVICES?YES :BRACE LEFT KNEE BRACE TRANSCRIPTER NEEDED?NO DOMESTIC VIOLENCE DO YOU FEEL SAFE IN YOUR ENVIRONMENT?YES OCCUPATION: UNEMPLOYED. DIET: REGULAR. EXERCISE: WALKS. MARITAL STATUS: SINGLE. OTHERS AT HOME: SIGNIFICANT OTHER. NEW PATIENT PAIN DIARY FROM 0-10, WHAT LEVEL IS YOUR PAIN TODAY?7 PAIN CLINIC PFS, CLERGY, PUBLIC HEALTH REFERRALS PFS REFERRAL NEEDED?NO CLERGY REFERRAL NEEDED?NO PUBLIC HEALTH REFERRAL NEEDED?NO HAS THE PATIENT BEEN EDUCATED REGARDING HIS/HER PLAN OF CARE?YES DOES USE HEAT FOR PAIN RELIEF BUT ONLY LAST A SHORT TIME. HAS THE PATIENT BEEN EDUCATED REGARDING PAIN, THE RISK FOR PAIN, THE IMPORTANCE OF EFFECTIVE PAIN MANAGEMENT, AND THE PAIN ASSESSMENT PROCESS?YES ADVANCE DIRECTIVE ADVANCE DIRECTIVE DISCUSSED WITH PATIENT:YES DECLINED INFO AND ASSISTANCE WITH HCP FORM AT THIS TIME. 01/05/19 REVIEWED WITH PT 01/05/19 3607 BV. HOSPITALIZATION/MAJOR DIAGNOSTIC PROCEDURE RUPTURED OVARIAN CYST 08/09/12 RELATED TO SURGERY REVIEW OF SYSTEMS REVIEWED BY: PROVIDER: ASHISH TREJO . CONSTITUTIONAL: ANY CHANGE IN YOUR MEDICAL CONDITION? NO . CHILLS NO . FEVER NO . INFECTION: DO YOU HAVE NEW INFECTIONS? NO . DO YOU HAVE HISTORY OF MRSA? NO . MUSCULOSKELETAL: ANY NEW PATTERNS OF PAIN OR NUMBNESS? INCREASED PAIN INTENSITY OVER THE PAST COUPLE MONTHS . GASTROENTEROLOGY: ANY NEW CHANGE IN BOWEL CONTROL? NO . GENITOURINARY: ANY NEW CHANGE IN BLADDER CONTROL? NO . IS THERE A CHANCE YOU COULD BE ? NO . HEMATOLOGY/LYMPH: DO YOU TAKE ANY BLOOD THINNERS? (FOR EXAMPLE- COUMADIN, PLAVIX, AGGRENOX, PLATEL, PRADAXA, OR XARELTO) NO . WHEN WAS YOUR LAST DOSE? DATE: TIME: . NEUROLOGY: HAVE YOU FALLEN IN THE PAST 12 MONTHS? YES, PT COMPLAINS OF 2 FALLS IN THE PAST COUPLE MONTHS. DENIES ANY INJURIES OR ED VISIT WITH EITHER FALL. . ANY NEW EXTREMITY NUMBNESS OR WEAKNESS? NO . CARDIOLOGY: DO YOU HAVE A PACEMAKER OR DEFIBRILLATOR? NO . RESPIRATORY: HAVE YOU BEEN SICK IN THE PAST WEEK? NO . FEVER NO . FLU LIKE SYMPTOMS? NO . COUGH NO . INTEGUMENTARY: DO YOU HAVE ANY RASHES OR OPEN SORES? NO . ALLERGIC/IMMUNO: ARE YOU ALLERGIC TO IV DYE? NO . ANY NEW ALLERGIES? NO . PSYCHIATRIC: DO YOU HAVE THOUGHTS OF HURTING YOURSELF OR SOMEONE ELSE? NO . ARE YOU ABUSED, NEGLECTED, OR IN AN UNSAFE ENVIRONMENT? NO . ENDOCRINOLOGY: ARE YOU DIABETIC? NO . OTHER: DO YOU NEED ANY PRESCRIPTIONS? YES, GABAPENTIN . IF YES, PLEASE LIST: ____ . ANY NEW PROBLEMS WITH YOUR MEDICATIONS? NO . WHEN DID YOU LAST EAT? ____ . WHEN DID YOU LAST DRINK? ____ . WHAT DID YOU LAST DRINK? ____ . NAME OF PERSON DRIVING YOU HOME? ____ . DO YOU HAVE ANY OTHER QUESTIONS OR CONCERNS PT CONCERNED BECAUSE INJECTIONS AND PAIN MEDICATION ARE NOT GIVING HER SAME RELIEF THEY WERE PRIOR . VITAL SIGNS WT 163.6 LBS, HT 64 IN, BMI 28.08 INDEX, BP 120/74 MM HG, HR 85 /MIN, RR 16 /MIN, TEMP 97.6 F, OXYGEN SAT % 96%, NA INITIALS SC 14:37, REVIEWED BY: BV. EXAMINATION GENERAL EXAMINATION: GENERAL APPEARANCE:AWAKE,ALERT ,PLEAASANT . PSYCHAFFECT NORMAL . LUNGS:LUNG JEWELL ARE CLEAR TO AUSCULTATION BILATERALLY. GOOD MOVEMENT OF AIR . HEART:S1, S2 IN A REGULAR RATE AND RHYTHM. NO SIGNIFICANT MURMURS, RUBS OR GALLOPS NOTED . CERVICALTRIGGER POINTS: CERVICAL/RHOMBOID AND TRAPEZIUS LEFT..PAIN IS AGGREVATED WITH ROJM NECK . ASSESSMENTS MYALGIA, OTHER SITE - M79.18 (PRIMARY) TREATMENT MYALGIA, OTHER SITE REFILL GABAPENTIN CAPSULE, 300 MG, 1 CAPSULE, ORALLY, THREE TIMES DAILY, 30 DAY(S), 90, REFILLS 3 NOTES: TPI LEFT RHOMBOID/CERVICAL W STEROID. PREVENTIVE MEDICINE PAIN CLINIC TEACHING: PROCEDURE TEACHING PT GIVEN WRITTEN AND VERBAL PRE-PROCEDURE INSTRUCTIONS. PT VERBALIZES UNDERSTANDING OF ALL INSTRUCTION. VIJAYA DON 01/05/2019 3:31:55 PM > . PROCEDURE CODES FA211 ESTABILISHED PATIENT [facility] FACILITY CHARGE DISPOSITION & COMMUNICATION FOLLOW UP POST (REASON: TPI LEFT RHOMBOID/CERVICAL W STEROID) ELECTRONICALLY SIGNED BY MAYA MENDOZA ON 01/12/2019 AT 04:47 PM EST DISCLAIMER : THIS IS A VISIT SUMMARY EXTRACTED FROM THE [employer] CHART. IT IS NOT A COPY OF THE [employer] PROGRESS NOTE. DAVONTE
== END ==
LOC: M PAIN 14:30
PROVIDERS: ATTEND Nurse Practitioner Family
DX: M79.18 Myalgia, other site (principal); G47.33 Obstructive sleep apnea (adult) (pediatric); M79.7 Fibromyalgia; E03.9 Hypothyroidism, unspecified; F17.210 Nicotine dependence, cigarettes, uncomplicated; Z88.5 Allergy status to narcotic agent; Z88.6 Allergy status to analgesic agent; Z88.8 Allergy status to other drugs, medicaments and biological substances; Z79.1 Long term (current) use of non-steroidal anti-inflammatories (NSAID); Z79.899 Other long term (current) drug therapy

== ENCOUNTER → 2019-01-14 | Outpatient (CLI) | payer OTHER ==
[~2019-01-14] MED LIST changes: +BUPIVACAINE HCL 0.25% 10 ML VIAL As Ordered ONE; +BUPIVACAINE HCL 0.25% 30 ML VIAL As Ordered ONE; +TRIAMCINOLONE ACETONIDE SUSP 40 MG/ML VIAL (J3301) As Ordered ONE; +diphenhydrAMINE 25 MG CAP As Ordered ONE
--- NOTE | 2019-02-02 00:16 | ECWPNPC ---
PATIENT NAME: ARNAV SPEARS : 1965 GENDER: FEMALE VISIT DATE: 01/14/2019 DISCHARGE DATE: 01/14/19 1616 VISIT LOCKED DATE TIME: PHYSICIAN: RICHY FLORES MD RESOURCE: RICHY FLORES MD REASON FOR APPOINTMENT 1. TPI HISTORY OF PRESENT ILLNESS HISTORY OF PRESENT ILLNESS: PAIN THE PATIENT DESCRIBES THE PAIN... FALL RISK SCREENING: SCREENING : NO FALLS IN THE PAST YEAR. CURRENT MEDICATIONS TAKING MELOXICAM 7.5 MG TABLET 1 TABLET ORALLY ONCE A DAY, NOTES: 01/12/19 TAKING LEVOTHYROXINE SODIUM 75 MCG TABLET 1 TABLET ORALLY ONCE A DAY, NOTES: 01/14/19 1300 TAKING CELEXA 40 MG TABLET 1 TABLET ORALLY ONCE A DAY, NOTES: 2 WEEKS TAKING ATORVASTATIN CALCIUM 20 MG TABLET 1 TABLET ORALLY ONCE A DAY, NOTES: 01/14/19 1300 TAKING TRUVADA 200-300 MG TABLET TAKE ONE TABLET BY MOUTH EVERY DAY , NOTES: 01/14/19 1300 TAKING COLACE 100 MG CAPSULE 1 CAPSULE NEEDED ORALLY TWICE A DAY, NOTES: 01/14/19 1300 TAKING FLEXERIL 10 MG TABLET 2 TABLET ORALLY BEFORE BEDTIME NEEDED, NOTES: 01/12/19 TAKING GABAPENTIN 300 MG CAPSULE 1 CAPSULE ORALLY THREE TIMES DAILY, NOTES: 01/14/19 1300 NOT-TAKING CYCLOBENZAPRINE HCL 10 MG TABLET 1 TABLET NEEDED ORALLY THREE TIMES A DAY MEDICATION LIST REVIEWED AND RECONCILED WITH THE PATIENT PAST MEDICAL HISTORY SLEEP APNEA: BIPAP: ANAMIKA VIGIL PULMONOLOGY FIBROMYALGIA HX DYSPLASIA BENIGN RIGHT AND LEFT BREAST LUMPS RUPTURED LEFT OVARIAN CYST (08/13) PERIMENOPAUSE 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 BULGING DISCS IN THE NECK ARTHRITIS HYPOTHYROIDISM SCOLIOSIS ALLERGIES NAPROXEN: HIVES: ALLERGY EFFEXOR XR: DIZZINESS, HAS, FLUSHING, NAUSEA, SHAKINESS : SIDE EFFECTS VICODIN: NAUSEA/VOMITING: SIDE EFFECTS SURGICAL HISTORY T & A BREAST BIOPSY, RIGHT X 2 BENIGN C SECTION ARTHROSCOPY KNEE SURGERY, LEFT LEEP BREAST BX, LEFT BENIGN DEVIATED SEPTUM REPAIR PALATEOPLASTY WISDOM TEETH SPINE INJECTIONS COLONOSCOPY 2012 FAMILY HISTORY FATHER: 72 YRS, SUICIDE, NO KNOWN MEDICAL PROBLEMS MOTHER: ALIVE 73 YRS, MIGRAINE, HTN, MELANOMA SIBLINGS: SISTER WITH MIGRAINE 2 BROTHER(S) , 1 SISTER(S) - HEALTHY. 1 SON(S) - HEALTHY. SOCIAL HISTORY GENERAL: TOBACCO USE ARE YOU A:CURRENT SMOKER ARE YOU INTERESTED IN QUITTING?NOT READY TO QUIT COUNSELED THE PATIENT ON SMOKING EFFECTS, EDUCATION [id number]/27/2018 HOW MANY CIGARETTES A DAY DO YOU SMOKE?6-10 HOW SOON AFTER YOU WAKE UP DO YOU SMOKE YOUR FIRST CIGARETTE?WITHIN 5 MIN HOW OFTEN DO YOU SMOKE CIGARETTES?EVERY DAY PATIENT COUNSELED ON THE DANGERS OF TOBACCO USE AND URGED TO QUIT:10/28/2018 LUNG CANCER SCREENING SMOKING STATUS:CURRENT SMOKER IS THE PATIENT BETWEEN THE AGE OF 54 AND 76?NO BMI CARE GOAL FOLLOW-UP ABOVE NORMAL BMI FOLLOW-UPLIFESTYLE EDUCATION REGARDING DIET ALCOHOL SCREENING DID YOU HAVE A DRINK CONTAINING ALCOHOL IN THE PAST YEAR?YES POINTS1 INTERPRETATIONNEGATIVE HOW OFTEN DID YOU HAVE A DRINK CONTAINING ALCOHOL IN THE PAST YEAR?MONTHLY OR LESS (1 POINT) HOW MANY DRINKS DID YOU HAVE ON A TYPICAL DAY WHEN YOU WERE DRINKING IN THE PAST YEAR?1 OR 2 (0 POINTS) HOW OFTEN DID YOU HAVE SIX OR MORE DRINKS ON ONE OCCASION IN THE PAST YEAR?NEVER (0 POINTS) RECREATIONAL DRUG USE DRUG USE?YES MARIJUANA, DAILY AT BEDTIME CAFFEINE CAFFEINE USE?YES ICED TEA ALL DAY OCCASIONAL COFFEE HOW OFTEN AND HOW MUCH? 1/2 POT COFFEE SEXUAL HX HAD SEX IN THE LAST 12 MONTHS (VAGINAL, ORAL, OR ANAL)?YES WITHMEN ONLY USE PROTECTION?NO PREVENTION STRATEGIES DISCUSSED:OTHER HAVE YOU EVER HAD AN STD?NO LMP:POST MENOPAUSE HIV / HEP-C SCREENING HIV TEST OFFERED TO PATIENT:YES DATE OFFERED:01/22/2018 TEST ACCEPTED:YES BROCHURE PROVIDED TO PATIENTYES HEP-C TEST OFFERED TO PATIENT:YES TEST ACCEPTED:NO REASON:PATIENT DECLINED PATIENT HAS BEEN TESTED AMISH [id number] [employer] LANGUAGE LANGUAGES SPOKEN:SLOVENIAN EDUCATION LEVEL OF EDUCATION:FINISHED HIGH SCHOOL LEARNING BARRIERS / SPECIAL NEEDS CHANGE FROM LAST VISIT?NO BARRIERS TO LEARNING?NO HEARING IMPAIRED?NO VISION IMPAIRED?YES :CORRECTIVE LENSES COGNITIVELY IMPAIRED?NO READINESS TO LEARN?YES LEARNING PREFERENCES?NO LEARNING CAPABILITIES PRESENT?YES EMOTIONAL BARRIERS?NO SPECIAL DEVICES?YES :BRACE LEFT KNEE 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 DIET: REGULAR. EXERCISE: WALKS. MARITAL STATUS: SINGLE. OTHERS AT HOME: SIGNIFICANT OTHER. NEW PATIENT PAIN DIARY FROM 0-10, WHAT LEVEL IS YOUR PAIN TODAY?5 PAIN CLINIC PFS, CLERGY, PUBLIC HEALTH REFERRALS PFS REFERRAL NEEDED?NO CLERGY REFERRAL NEEDED?NO PUBLIC HEALTH REFERRAL NEEDED?NO HAS THE PATIENT BEEN EDUCATED REGARDING HIS/HER PLAN OF CARE?YES DOES USE HEAT FOR PAIN RELIEF BUT ONLY LAST A SHORT TIME. HAS THE PATIENT BEEN EDUCATED REGARDING PAIN, THE RISK FOR PAIN, THE IMPORTANCE OF EFFECTIVE PAIN MANAGEMENT, AND THE PAIN ASSESSMENT PROCESS?YES ADVANCE DIRECTIVE ADVANCE DIRECTIVE DISCUSSED WITH PATIENT:YES DECLINED INFO AND ASSISTANCE WITH HCP FORM AT THIS TIME. 01/05/19 REVIEWED WITH PT 01/05/19 1137 BV. HOSPITALIZATION/MAJOR DIAGNOSTIC PROCEDURE RUPTURED OVARIAN CYST 08/09/12 RELATED TO SURGERY REVIEW OF SYSTEMS REVIEWED BY: PROVIDER: . CONSTITUTIONAL: ANY CHANGE IN YOUR MEDICAL CONDITION? NO . CHILLS NO . FEVER NO . INFECTION: DO YOU HAVE NEW INFECTIONS? NO . DO YOU HAVE HISTORY OF MRSA? NO . MUSCULOSKELETAL: ANY NEW PATTERNS OF PAIN OR NUMBNESS? NO . GASTROENTEROLOGY: ANY NEW CHANGE IN BOWEL CONTROL? NO . GENITOURINARY: ANY NEW CHANGE IN BLADDER CONTROL? NO . IS THERE A CHANCE YOU COULD BE ? NO . HEMATOLOGY/LYMPH: DO YOU TAKE ANY BLOOD THINNERS? (FOR EXAMPLE- COUMADIN, PLAVIX, AGGRENOX, PLATEL, PRADAXA, OR XARELTO) NO . WHEN WAS YOUR LAST DOSE? DATE: TIME: . NEUROLOGY: HAVE YOU FALLEN IN THE PAST 12 MONTHS? YES . ANY NEW EXTREMITY NUMBNESS OR WEAKNESS? NO . CARDIOLOGY: DO YOU HAVE A PACEMAKER OR DEFIBRILLATOR? NO . RESPIRATORY: HAVE YOU BEEN SICK IN THE PAST WEEK? NO . FEVER NO . FLU LIKE SYMPTOMS? NO . COUGH NO . INTEGUMENTARY: DO YOU HAVE ANY RASHES OR OPEN SORES? NO . ALLERGIC/IMMUNO: ARE YOU ALLERGIC TO IV DYE? NO . ANY NEW ALLERGIES? NO . PSYCHIATRIC: DO YOU HAVE THOUGHTS OF HURTING YOURSELF OR SOMEONE ELSE? NO . ARE YOU ABUSED, NEGLECTED, OR IN AN UNSAFE ENVIRONMENT? NO . ENDOCRINOLOGY: ARE YOU DIABETIC? NO . OTHER: DO YOU NEED ANY PRESCRIPTIONS? NO . IF YES, PLEASE LIST: ____ . ANY NEW PROBLEMS WITH YOUR MEDICATIONS? NO . WHEN DID YOU LAST EAT? 01/13/19 2030 . WHEN DID YOU LAST DRINK? 01/14/19 1300 . WHAT DID YOU LAST DRINK? WATER . NAME OF PERSON DRIVING YOU HOME? STUART . DO YOU HAVE ANY OTHER QUESTIONS OR CONCERNS NO . VITAL SIGNS WT 164.8 LBS, HT 64 IN, BMI 28.28 INDEX, BP 142/78 MM HG, HR 78 /MIN, RR 16 /MIN, TEMP 97.6 F, OXYGEN SAT % 98%, NA INITIALS AW 1430, REVIEWED BY: LS. ASSESSMENTS MYALGIA, OTHER SITE - M79.18 (PRIMARY) PROCEDURES PN TRIGGER POINT INJECTION WITH STEROIDS PRE PROCEDURE DIAGNOSIS 1. MYALGIA 2. PAIN AT LEFT THORACIC AREA POST PROCEDURE DIAGNOSIS 1. MYALGIA 2. PAIN AT LEFT THORACIC AREA PROCEDURE TRIGGER POINT INJECTION AT LEFT THORACIC AREA SURGEON DR. RICHY FLORES PATIENT RELATIONS SPECIALIST NONE ANESTHESIA LOCAL PRE PROCEDURE NOTE THE PATIENT HAS A HISTORY OF CHRONIC PAIN AT THE LEFT THORACIC AREA. I EVALUATE THE PATIENT AND REVIEWED THE CHART. THERE IS EVIDENCE OF BANDS OF TISSUE WITH RESTRICTION OF MOVEMENT AND PRESENCE OF TRIGGER POINT AT THE AFFECTED AREA. I WENT OVER THE RISKS, ALTERNATIVES, AND BENEFITS ASSOCIATED WITH THIS PROCEDURE. THE PATIENT WOULD LIKE TO PROCEED AND GIVE CONSENT TO PERFORMED THE PROCEDURE. THE PATIENT DENIES UNEXPLAINABLE WEIGHT LOSS, FEVER, CHILLS, OR NEW CHANGES IN URINARY OR BOWEL CONTROL DESCRIPTION OF PROCEDURE THE PATIENT WAS BROUGHT TO THE PROCEDURE ROOM AND PLACED IN THE SITTING POSITION. THE AREA WAS CLEANED WITH ALCOHOL. THE PROCEDURE WAS DONE USING ASEPTIC STERILE TECHNIQUE. I CHECKED LATERALITY AND THE LEVEL WHERE THE PROCEDURE WAS GOING TO BE PERFORMED WITH THE PATIENT AND THE SUPPORTING STAFF AT THE MOMENT OF THE TIME OUT IN THE PROCEDURE ROOM. USING A 25-GAUGE NEEDLE, TRIGGER POINTS WERE INJECTED AT THE LEFT THORACIC AREA WITH A TOTAL OF 40 ML OF BUPIVACAINE 0.25% AND KENALOG 40 MG. THERE WAS NO EVIDENCE OF BLOOD, PARESTHESIA OR CEREBROSPINAL FLUID DURING THE PROCEDURE. THE PATIENT WAS SENT TO THE RECOVERY ROOM. THE PATIENT WAS MOVING THE EXTREMITIES AND DOING WELL. THERE WAS NO COMPLICATION DURING THE PROCEDURE POST PROCEDURE NOTE THE PATIENT WILL BE SEEN IN A FOLLOW UP IN THE NEXT FEW WEEKS. INSTRUCTIONS WERE GIVEN, QUESTIONS WERE ANSWERED, AND THE PATIENT EXPRESSED UNDERSTANDING AND AGREES WITH THE PLAN. I, LEONOR SCOTT, DOCUMENTED THE ABOVE INFORMATION ACTING A SCRIBE FOR DR. FLORES. I HAVE REVIEWED THE ABOVE DOCUMENT, WRITTEN BY LEONOR CHRISTOPHER AND I VERIFY THAT IT IS ACCURATE. PROCEDURE CODES 48726 INJ TRIGGER POINT 12/03 [facility] [place] & COMMUNICATION FOLLOW UP 3 WEEKS ELECTRONICALLY SIGNED BY RICHY FLORES MD, MD ON 02/01/2019 AT 12:56 PM EST DISCLAIMER : THIS IS A VISIT SUMMARY EXTRACTED FROM THE [employer] CHART. IT IS NOT A COPY OF THE [employer] PROGRESS NOTE. DAVONTE
== END ==
LOC: M PAIN 14:15
PROVIDERS: ATTEND Anesthesiology
DX: M79.18 Myalgia, other site (principal); M54.6 Pain in thoracic spine; G47.30 Sleep apnea, unspecified; M19.90 Unspecified osteoarthritis, unspecified site; E03.9 Hypothyroidism, unspecified; F17.210 Nicotine dependence, cigarettes, uncomplicated; Z79.899 Other long term (current) drug therapy; Z88.5 Allergy status to narcotic agent; Z88.8 Allergy status to other drugs, medicaments and biological substances
CPT/HCPCS: 20552; J3301

== ENCOUNTER → 2019-02-18 | Outpatient (REF) | payer OTHER ==
[~2019-02-18] MED LIST changes: -BUPIVACAINE HCL 0.25% 10 ML VIAL As Ordered ONE; -BUPIVACAINE HCL 0.25% 30 ML VIAL As Ordered ONE; -TRIAMCINOLONE ACETONIDE SUSP 40 MG/ML VIAL (J3301) As Ordered ONE; -diphenhydrAMINE 25 MG CAP As Ordered ONE
[2019-02-18 18:16] LABS: BASO # 0.1 10^3/uL (0.0-0.2); BASO % 0.7 % (0.0-1.0); EOS # 0.1 10^3/uL (0.0-0.50); EOS % 1.2 % (0.0-3.0); HEMATOCRIT 40.5 % (36.0-47.0); HEMOGLOBIN 13.3 g/dl (12.0-15.5); LYMPH # 2.4 10^3/uL (1.5-4.5); LYMPH % 26.6 % (24.0-44.0); MEAN CORPUSCULAR HEMOGLOBIN 30.3 pg (27.0-33.0); MEAN CORPUSCULAR HGB CONC 32.8 g/dl (32.0-36.5); MEAN CORPUSCULAR VOLUME 92.3 fl (80.0-96.0); MONO # 0.5 10^3/uL (0.0-0.8); MONO % 5.8 % (0.0-5.0); NEUTROPHILS # 5.9 10^3/uL (1.8-7.7); NEUTROPHILS % 65.4 % (36.0-66.0); PLATELET COUNT, AUTOMATED 361 10^3/uL (150-450); RED BLOOD COUNT 4.39 10^6/uL (4.00-5.40)
[2019-02-18 18:47] LABS: ALBUMIN 4.3 GM/DL (3.2-5.2); ALT/SGPT 21 U/L (12-78); BILIRUBIN,TOTAL 0.3 MG/DL (0.2-1.0); BLOOD UREA NITROGEN 11 MG/DL (7-18); CALCIUM LEVEL 9.2 MG/DL (8.5-10.1); CARBON DIOXIDE LEVEL 26 MEQ/L (21-32); CHLORIDE LEVEL 103 MEQ/L (98-107); CHOLESTEROL LEVEL 177 MG/DL (<200); CHOLESTEROL RISK RATIO 3.847 (<5); CREATININE FOR GFR 0.92 MG/DL (0.55-1.30); GLOMERULAR FILTRATION RATE > 60.0 (>51); GLUCOSE, FASTING 89 MG/DL (70-100); HDL CHOLESTEROL 46 MG/DL (>40); LDL CHOLESTEROL 100 MG/DL (<100); NON-HDL-C 131 MG/DL; POTASSIUM SERUM 4.2 MEQ/L (3.5-5.1); SODIUM LEVEL 137 MEQ/L (136-145); THYROID STIMULATING HORMONE 0.436 uIU/ML (0.358-3.740); TOTAL PROTEIN 7.7 GM/DL (6.4-8.2); TRIGLYCERIDES LEVEL 157 MG/DL (<150)
[2019-02-18 19:07] LABS: HEMOGLOBIN A1c 5.9 %
[2019-02-18 19:27] LABS: HIV 1&2 SCREEN CENTAUR NEGATIVE (NEGATIVE)
== END ==
LOC: M LAB REF 17:54
PROVIDERS: ATTEND Nurse Practitioner Family
DX: Z13.9 Encounter for screening, unspecified (principal); E78.5 Hyperlipidemia, unspecified; E03.9 Hypothyroidism, unspecified

== ENCOUNTER → 2019-03-24 | Outpatient (CLI) | payer OTHER ==
--- NOTE | 2019-04-08 01:19 | ECWPNPC ---
PATIENT NAME: ARNAV SPEARS : 1965 GENDER: FEMALE VISIT DATE: 03/24/2019 DISCHARGE DATE: 03/24/19 1422 VISIT LOCKED DATE TIME: PHYSICIAN: ASHISH LIMA RESOURCE: ASHISH LIMA REASON FOR APPOINTMENT 1. POST PROC HISTORY OF PRESENT ILLNESS HISTORY OF PRESENT ILLNESS: HERE FOR POST PROCEDURE F/U.HAD TPI LEFT THORACIC /UPPER BACK ON 01/14.REPORTING IMPROVEMENT IN THAT AREA THAT CONTINUES TODAY.CHIEF AREA OF PAIN IS LOW BACK.PAIN RANGES FROM 2-7/10 VAS. PAIN THE PATIENT DESCRIBES THE PAIN... FALL RISK SCREENING: SCREENING :NO FALLS REPORTED IN THE LAST YEAR CURRENT MEDICATIONS TAKING MELOXICAM 7.5 MG TABLET 1 TABLET ORALLY ONCE A DAY TAKING LEVOTHYROXINE SODIUM 75 MCG TABLET 1 TABLET ORALLY ONCE A DAY TAKING CELEXA 40 MG TABLET 1 TABLET ORALLY ONCE A DAY TAKING ATORVASTATIN CALCIUM 20 MG TABLET 1 TABLET ORALLY ONCE A DAY TAKING COLACE 100 MG CAPSULE 1 CAPSULE NEEDED ORALLY TWICE A DAY TAKING FLEXERIL 10 MG TABLET 2 TABLET ORALLY BEFORE BEDTIME NEEDED TAKING GABAPENTIN 300 MG CAPSULE 1 CAPSULE ORALLY THREE TIMES DAILY TAKING TRUVADA 200-300 MG TABLET TAKE ONE TABLET BY MOUTH EVERY DAY ORALLY DAILY TAKING CYCLOBENZAPRINE HCL 10 MG TABLET 1 TABLET NEEDED ORALLY THREE TIMES A DAY MEDICATION LIST REVIEWED AND RECONCILED WITH THE PATIENT PAST MEDICAL HISTORY SLEEP APNEA: BIPAP: ANAMIKA VIGIL PULMONOLOGY FIBROMYALGIA HX DYSPLASIA BENIGN RIGHT AND LEFT BREAST LUMPS RUPTURED LEFT OVARIAN CYST (08/13) PERIMENOPAUSE 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 BULGING DISCS IN THE NECK ARTHRITIS HYPOTHYROIDISM SCOLIOSIS ALLERGIES NAPROXEN: HIVES - ALLERGY EFFEXOR XR: DIZZINESS, HAS, FLUSHING, NAUSEA, SHAKINESS - SIDE EFFECTS VICODIN: NAUSEA/VOMITING - SIDE EFFECTS SURGICAL HISTORY T & A BREAST BIOPSY, RIGHT X 2 BENIGN C SECTION ARTHROSCOPY KNEE SURGERY, LEFT LEEP BREAST BX, LEFT BENIGN DEVIATED SEPTUM REPAIR PALATEOPLASTY WISDOM TEETH SPINE INJECTIONS COLONOSCOPY 2012 FAMILY HISTORY FATHER: 72 YRS, SUICIDE, NO KNOWN MEDICAL PROBLEMS MOTHER: ALIVE 73 YRS, MIGRAINE, HTN, MELANOMA SIBLINGS: SISTER WITH MIGRAINE 2 BROTHER(S) , 1 SISTER(S) - HEALTHY. 1 SON(S) - HEALTHY. SOCIAL HISTORY GENERAL: TOBACCO USE ARE YOU A:CURRENT SMOKER ARE YOU INTERESTED IN QUITTING?NOT READY TO QUIT COUNSELED THE PATIENT ON SMOKING EFFECTS, EDUCATION [id number]/23/2019 HOW MANY CIGARETTES A DAY DO YOU SMOKE?6-10 HOW SOON AFTER YOU WAKE UP DO YOU SMOKE YOUR FIRST CIGARETTE?WITHIN 5 MIN HOW OFTEN DO YOU SMOKE CIGARETTES?EVERY DAY PATIENT COUNSELED ON THE DANGERS OF TOBACCO USE AND URGED TO QUIT:10/28/2018 LUNG CANCER SCREENING SMOKING STATUS:CURRENT SMOKER IS THE PATIENT BETWEEN THE AGE OF 54 AND 76?NO BMI CARE GOAL FOLLOW-UP ABOVE NORMAL BMI FOLLOW-UPLIFESTYLE EDUCATION REGARDING DIET ALCOHOL SCREENING DID YOU HAVE A DRINK CONTAINING ALCOHOL IN THE PAST YEAR?YES POINTS1 INTERPRETATIONNEGATIVE HOW OFTEN DID YOU HAVE A DRINK CONTAINING ALCOHOL IN THE PAST YEAR?MONTHLY OR LESS (1 POINT) HOW MANY DRINKS DID YOU HAVE ON A TYPICAL DAY WHEN YOU WERE DRINKING IN THE PAST YEAR?1 OR 2 (0 POINTS) HOW OFTEN DID YOU HAVE SIX OR MORE DRINKS ON ONE OCCASION IN THE PAST YEAR?NEVER (0 POINTS) RECREATIONAL DRUG USE DRUG USE?YES MARIJUANA, DAILY AT BEDTIME CAFFEINE CAFFEINE USE?YES ICED TEA ALL DAY OCCASIONAL COFFEE HOW OFTEN AND HOW MUCH? 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 DIET: REGULAR. EXERCISE: WALKS. MARITAL STATUS: SINGLE. OTHERS AT HOME: SIGNIFICANT OTHER. NEW PATIENT PAIN DIARY FROM 0-10, WHAT LEVEL IS YOUR PAIN TODAY?5 PAIN CLINIC PFS, CLERGY, PUBLIC HEALTH REFERRALS PFS REFERRAL NEEDED?NO CLERGY REFERRAL NEEDED?NO PUBLIC HEALTH REFERRAL NEEDED?NO HAS THE PATIENT BEEN EDUCATED REGARDING HIS/HER PLAN OF CARE?YES DOES USE HEAT FOR PAIN RELIEF BUT ONLY LAST A SHORT TIME. HAS THE PATIENT BEEN EDUCATED REGARDING PAIN, THE RISK FOR PAIN, THE IMPORTANCE OF EFFECTIVE PAIN MANAGEMENT, AND THE PAIN ASSESSMENT PROCESS?YES ADVANCE DIRECTIVE ADVANCE DIRECTIVE DISCUSSED WITH PATIENT:YES DECLINED INFO AND ASSISTANCE WITH HCP FORM AT THIS TIME. REVIEWED WITH PT 01/05/19 3407 BV. HOSPITALIZATION/MAJOR DIAGNOSTIC PROCEDURE RUPTURED OVARIAN CYST 08/09/12 RELATED TO SURGERY REVIEW OF SYSTEMS REVIEWED BY: PROVIDER: ASHISH TREJO . CONSTITUTIONAL: ANY CHANGE IN YOUR MEDICAL CONDITION? NO . CHILLS NO . FEVER NO . INFECTION: DO YOU HAVE NEW INFECTIONS? NO . DO YOU HAVE HISTORY OF MRSA? NO . MUSCULOSKELETAL: ANY NEW PATTERNS OF PAIN OR NUMBNESS? NO . GASTROENTEROLOGY: ANY NEW CHANGE IN BOWEL CONTROL? NO . GENITOURINARY: ANY NEW CHANGE IN BLADDER CONTROL? NO . IS THERE A CHANCE YOU COULD BE ? NO . HEMATOLOGY/LYMPH: DO YOU TAKE ANY BLOOD THINNERS? (FOR EXAMPLE- COUMADIN, PLAVIX, AGGRENOX, PLATEL, PRADAXA, OR XARELTO) NO . WHEN WAS YOUR LAST DOSE? DATE: TIME: . NEUROLOGY: HAVE YOU FALLEN IN THE PAST 12 MONTHS? YES, FELL ON ICE PT DENIES INJURIES . ANY NEW EXTREMITY NUMBNESS OR WEAKNESS? NO . CARDIOLOGY: DO YOU HAVE A PACEMAKER OR DEFIBRILLATOR? NO . RESPIRATORY: HAVE YOU BEEN SICK IN THE PAST WEEK? NO . FEVER NO . FLU LIKE SYMPTOMS? NO . COUGH NO . INTEGUMENTARY: DO YOU HAVE ANY RASHES OR OPEN SORES? NO . ALLERGIC/IMMUNO: ARE YOU ALLERGIC TO IV DYE? NO . ANY NEW ALLERGIES? NO . PSYCHIATRIC: DO YOU HAVE THOUGHTS OF HURTING YOURSELF OR SOMEONE ELSE? NO . ARE YOU ABUSED, NEGLECTED, OR IN AN UNSAFE ENVIRONMENT? NO . ENDOCRINOLOGY: ARE YOU DIABETIC? NO . OTHER: DO YOU NEED ANY PRESCRIPTIONS? NO . IF YES, PLEASE LIST: ____ . ANY NEW PROBLEMS WITH YOUR MEDICATIONS? NO . WHEN DID YOU LAST EAT? ____ . WHEN DID YOU LAST DRINK? ____ . WHAT DID YOU LAST DRINK? ____ . NAME OF PERSON DRIVING YOU HOME? ____ . DO YOU HAVE ANY OTHER QUESTIONS OR CONCERNS NO . VITAL SIGNS WT 163 LBS, HT 64 IN, BMI 27.98 INDEX, BP 141/83 MM HG, HR 76 /MIN, RR 16 /MIN, TEMP 98.1 F, OXYGEN SAT % 96, REVIEWED BY: EM. EXAMINATION GENERAL EXAMINATION: GENERAL APPEARANCE: AWAKE,ALERT ,PLEAASANT . PSYCH AFFECT NORMAL . LUNGS: LUNG JEWELL ARE CLEAR TO AUSCULTATION BILATERALLY. GOOD MOVEMENT OF AIR . HEART: S1, S2 IN A REGULAR RATE AND RHYTHM. NO SIGNIFICANT MURMURS, RUBS OR GALLOPS NOTED . MUSCULOSKELETAL:MST -SLIGHTLY WEAK BILAT.. LUMBAR SACRAL SPINE PALPATION: + FOR PAIN OVER L/S SPINE. + FOR PAIN OVER L/S PARASPINALS. NEUROLOGIC EXAM: NORMAL SENSATION LIGHT TOUCH BILAT. LOWER EXTREMITIES. ASSESSMENTS LOW BACK PAIN AT MULTIPLE SITES - M54.5 (PRIMARY) MYALGIA, OTHER SITE - M79.18 TREATMENT LOW BACK PAIN AT MULTIPLE SITES BOONE SPINE LS [id number] NOTES: PT 2XWK X6WK LOW BACK PAIN. PROCEDURE CODES FA211 ESTABILISHED PATIENT [facility] CHARGE DISPOSITION & COMMUNICATION FOLLOW UP 6 WEEKS ELECTRONICALLY SIGNED BY MAYA MENDOZA ON 04/07/2019 AT 04:48 PM EDT DISCLAIMER : THIS IS A VISIT SUMMARY EXTRACTED FROM THE [employer] CHART. IT IS NOT A COPY OF THE [employer] PROGRESS NOTE. DAVONTE
== END ==
LOC: M PAIN 13:15
PROVIDERS: ATTEND Nurse Practitioner Family
DX: M54.5 Low back pain (principal); M79.18 Myalgia, other site; G47.30 Sleep apnea, unspecified; M79.7 Fibromyalgia; M19.90 Unspecified osteoarthritis, unspecified site; E03.9 Hypothyroidism, unspecified; F17.210 Nicotine dependence, cigarettes, uncomplicated; Z88.5 Allergy status to narcotic agent; Z88.6 Allergy status to analgesic agent; Z88.8 Allergy status to other drugs, medicaments and biological substances; Z79.899 Other long term (current) drug therapy

== ENCOUNTER 2019-04-30 10:40 | Outpatient (RCR) | payer OTHER ==
[~2019-04-30 10:40] MED LIST changes: -TRAZ-160 PO; +TRAZ-252 PO
== END 2019-05-01 ==
LOC: M PT 10:40
PROVIDERS: ATTEND Nurse Practitioner Family
DX: M54.5 Low back pain (principal)

== ENCOUNTER → 2019-05-18 | Outpatient (REF) | payer OTHER | LOC: M LAB REF 18:33 | PROVIDERS: ATTEND Nurse Practitioner Family | DX: Z20.6 Contact with and (suspected) exposure to human immunodeficiency virus [HIV] (principal) ==

== ENCOUNTER 2019-05-26 09:46 | Outpatient (RCR) | payer OTHER | END 2019-05-31 | LOC: M PT 09:46 | PROVIDERS: ATTEND Nurse Practitioner Family | DX: M54.5 Low back pain (principal); M79.18 Myalgia, other site ==

== ENCOUNTER 2019-06-21 11:32 | Emergency (ER) | payer OTHER ==
[~2019-06-21] VITALS: Ht 162.6 cm; Wt 75.0 kg
[2019-06-21] MEDS ORDERED: TRUVTAB PO (11:49)
[2019-06-21] MEDS ORDERED: LEVO50TA5 PO (11:49)
[2019-06-21] MEDS ORDERED: DOCU100C16 PO (11:49)
[2019-06-21] MEDS ORDERED: MELO15TA28 PO (11:49)
--- NOTE | 2019-06-21 12:31 | REP ---
LEFT ANKLE, FOUR VIEWS: There is no evidence of an acute fracture, dislocation or intrinsic bone disease. The ankle mortise is anatomic. IMPRESSION: No fracture or dislocation. Electronically Signed by Ochoa Alvarado MD 06/21/2019 11:55 P
[2019-06-21 13:27] VITALS: BP 117/77
== END 2019-06-21 13:32 | disposition home or self-care (01) ==
LOC: M ED 11:32
DX: S93.412A Sprain of calcaneofibular ligament of left ankle, initial encounter (principal); S93.492A Sprain of other ligament of left ankle, initial encounter; X58.XXXA Exposure to other specified factors, initial encounter; Y92.098 Other place in other non-institutional residence as the place of occurrence of the external cause; Z88.5 Allergy status to narcotic agent; Z88.6 Allergy status to analgesic agent; Z91.040 Latex allergy status; Z79.899 Other long term (current) drug therapy

== ENCOUNTER → 2019-08-04 | Outpatient (CLI) | payer OTHER ==
[~2019-08-04] MED LIST changes: +DOCU100C16 PO; +LEVO50TA5 PO; +MELO15TA28 PO; +TRUVTAB PO
--- NOTE | 2019-08-06 02:57 | ECWPNPC ---
PATIENT NAME: ARNAV SPEARS : 1965 GENDER: FEMALE VISIT DATE: 08/04/2019 DISCHARGE DATE: 08/04/19 1131 VISIT LOCKED DATE TIME: PHYSICIAN: SOFIA MURILLO RESOURCE: SOFIA MURILLO DISCLAIMER : THIS IS A VISIT SUMMARY EXTRACTED FROM THE [facility] CHART. IT IS NOT A COPY OF THE [employer] PROGRESS NOTE. DAVONTE
== END ==
LOC: M PAIN 11:15
PROVIDERS: ATTEND Family Medicine
DX: M54.5 Low back pain (principal); G89.29 Other chronic pain; G47.30 Sleep apnea, unspecified; M79.7 Fibromyalgia; M19.90 Unspecified osteoarthritis, unspecified site; E03.9 Hypothyroidism, unspecified; F17.210 Nicotine dependence, cigarettes, uncomplicated; Z88.5 Allergy status to narcotic agent; Z88.6 Allergy status to analgesic agent; Z88.8 Allergy status to other drugs, medicaments and biological substances; Z79.899 Other long term (current) drug therapy

== ENCOUNTER → 2019-08-14 | Outpatient (CLI) | payer OTHER ==
--- NOTE | 2019-08-14 16:01 | REP ---
MRI of the lumbar spine without contrast Indication: Lower back pain. Comparison: MRI lumbar spine of 05/30/2004. Technique: MRI of the lumbar spine was performed utilizing sagittal STIR, T1 and T2, and axial T1 and T2 weighted imaging. No intravenous contrast was administered. Findings: There is normal alignment and curvature of the lumbar spine. Bone marrow signal intensity is within normal limits. Vertebral body heights are maintained. There is loss of disc height at L2-L3 with disc bulge, anterior osteophyte formation and anterior endplate edema, new since the prior study. The visualized spinal cord is normal. The conus medullaris terminates at the level of L1. The paraspinal soft tissues are within normal limits. Level specific observations: L1-L2: Mild disc bulge. L2-L3: Diffuse disc bulge. L3-L4, L4-L5, L5-S1: No significant disc herniation, spinal canal stenosis or neural foraminal compromise. Impression: When compared to the 05/30/2004 examination, there are new degenerative changes, most notably at L2-L3 without significant spinal canal stenosis or neural foraminal compromise. Electronically Signed by Kate Chanel MD 08/14/2019 03:52 P
== END ==
LOC: M RAD 12:37
PROVIDERS: ATTEND Family Medicine
DX: M25.78 Osteophyte, vertebrae (principal); M51.26 Other intervertebral disc displacement, lumbar region

== ENCOUNTER → 2019-08-18 | Outpatient (REF) | payer OTHER ==
[2019-08-18 17:21] LABS: HEMOGLOBIN A1c 5.9 %
[2019-08-18 17:25] LABS: BASO # 0.1 10^3/uL (0.0-0.2); BASO % 0.8 % (0.0-1.0); EOS # 0.1 10^3/uL (0.0-0.5); EOS % 1.7 % (0.0-3.0); HEMATOCRIT 39.4 % (36.0-47.0); HEMOGLOBIN 12.8 g/dl (12.0-15.5); LYMPH # 1.8 10^3/uL (1.5-5.0); LYMPH % 24.3 % (24.0-44.0); MEAN CORPUSCULAR HEMOGLOBIN 31.6 pg (27.0-33.0); MEAN CORPUSCULAR HGB CONC 32.5 g/dl (32.0-36.5); MEAN CORPUSCULAR VOLUME 97.3 fl (80.0-96.0); MONO # 0.4 10^3/uL (0.0-0.8); MONO % 5.5 % (0.0-5.0); NEUTROPHILS # 4.9 10^3/uL (1.5-8.5); NEUTROPHILS % 67.4 % (36.0-66.0); PLATELET COUNT, AUTOMATED 363 10^3/uL (150-450); RED BLOOD COUNT 4.05 10^6/uL (4.00-5.40); WHITE BLOOD COUNT 7.3 10^3/uL (4.0-10.0)
[2019-08-18 17:32] LABS: ALBUMIN 4.1 GM/DL (3.2-5.2); ALT/SGPT 23 U/L (12-78); BILIRUBIN,TOTAL 0.2 MG/DL (0.2-1.0); BLOOD UREA NITROGEN 9 MG/DL (7-18); CALCIUM LEVEL 9.1 MG/DL (8.5-10.1); CARBON DIOXIDE LEVEL 27 MEQ/L (21-32); CHLORIDE LEVEL 105 MEQ/L (98-107); CHOLESTEROL LEVEL 188 MG/DL (<200); CREATININE FOR GFR 0.85 MG/DL (0.55-1.30); FREE T4 0.77 NG/DL (0.76-1.46); GLOMERULAR FILTRATION RATE > 60.0 (>51); GLUCOSE, FASTING 84 MG/DL (70-100); HDL CHOLESTEROL 40 MG/DL (>40); LDL CHOLESTEROL 71 MG/DL (<100); NON-HDL-C 148 MG/DL; POTASSIUM SERUM 4.3 MEQ/L (3.5-5.1); SODIUM LEVEL 140 MEQ/L (136-145); TOTAL PROTEIN 7.5 GM/DL (6.4-8.2); TRIGLYCERIDES LEVEL 384 MG/DL (<150)
[2019-08-19 10:49] LABS: HIV 1&2 SCREEN CENTAUR NEGATIVE (NEGATIVE)
== END ==
LOC: M LAB REF 16:36
PROVIDERS: ATTEND Nurse Practitioner Family
DX: Z11.3 Encounter for screening for infections with a predominantly sexual mode of transmission (principal); E78.5 Hyperlipidemia, unspecified; R73.03 Prediabetes; E03.9 Hypothyroidism, unspecified

== ENCOUNTER → 2019-09-08 | Outpatient (CLI) | payer OTHER ==
[~2019-09-08] MED LIST changes: +ATOR1TAB21 PO; +GABA-843 PO; +SOMA250T PO
--- NOTE | 2019-09-21 11:38 | ECWPNPC ---
PATIENT NAME: ARNAV SPEARS : 1965 GENDER: FEMALE VISIT DATE: 09/08/2019 DISCHARGE DATE: 09/08/19 1217 VISIT LOCKED DATE TIME: PHYSICIAN: SOFIA MURILLO RESOURCE: SOFIA MURILLO REASON FOR APPOINTMENT 1. REVIEW MRI HISTORY OF PRESENT ILLNESS HISTORY OF PRESENT ILLNESS: PAIN THE PATIENT DESCRIBES THE PAIN... 54-YEAR-OLD FEMALE IN FOR MRI REVIEW. SHE RATES HER PAIN AT 100 OUT OF 10 AND DESCRIBES IT ACHING, SHARP, BURNING, STABBING, AND SHOOTING. FALL RISK SCREENING: SCREENING :NO FALLS REPORTED IN THE LAST YEAR CURRENT MEDICATIONS TAKING MELOXICAM 7.5 MG TABLET 1 TABLET ORALLY ONCE A DAY TAKING LEVOTHYROXINE SODIUM 75 MCG TABLET 1 TABLET ORALLY ONCE A DAY TAKING CELEXA 40 MG TABLET 1 TABLET ORALLY ONCE A DAY TAKING ATORVASTATIN CALCIUM 20 MG TABLET 1 TABLET ORALLY ONCE A DAY TAKING TRUVADA 200-300 MG TABLET TAKE ONE TABLET BY MOUTH EVERY DAY ORALLY DAILY TAKING FLEXERIL 10 MG TABLET 1TABLET ORALLY THREE TIMES DAILY NEEDED TAKING GABAPENTIN 300 MG CAPSULE 1 CAPSULE ORALLY THREE TIMES DAILY TAKING ACETAMINOPHEN 500 MG CAPSULE 1 CAPSULE NEEDED ORALLY EVERY 6 HRS TAKING COLACE 100 MG CAPSULE 1 CAPSULE NEEDED ORALLY TWICE A DAY MEDICATION LIST REVIEWED AND RECONCILED WITH THE PATIENT PAST MEDICAL HISTORY SLEEP APNEA: BIPAP: ANAMIKA VIGIL PULMONOLOGY FIBROMYALGIA HX DYSPLASIA BENIGN RIGHT AND LEFT BREAST LUMPS RUPTURED LEFT OVARIAN CYST (08/13) PERIMENOPAUSE 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 BULGING DISCS IN THE NECK ARTHRITIS HYPOTHYROIDISM SCOLIOSIS ALLERGIES NAPROXEN: HIVES - ALLERGY EFFEXOR XR: DIZZINESS, HAS, FLUSHING, NAUSEA, SHAKINESS - SIDE EFFECTS VICODIN: NAUSEA/VOMITING - SIDE EFFECTS SURGICAL HISTORY T & A BREAST BIOPSY, RIGHT X 2 BENIGN C SECTION ARTHROSCOPY KNEE SURGERY, LEFT LEEP BREAST BX, LEFT BENIGN DEVIATED SEPTUM REPAIR PALATEOPLASTY WISDOM TEETH SPINE INJECTIONS COLONOSCOPY 2012 FAMILY HISTORY FATHER: 72 YRS, SUICIDE, NO KNOWN MEDICAL PROBLEMS MOTHER: ALIVE 73 YRS, MIGRAINE, HTN, MELANOMA SIBLINGS: SISTER WITH MIGRAINE 2 BROTHER(S) , 1 SISTER(S) - HEALTHY. 1 SON(S) - HEALTHY. SOCIAL HISTORY GENERAL: TOBACCO USE ARE YOU A:CURRENT SMOKER ARE YOU INTERESTED IN QUITTING?NOT READY TO QUIT COUNSELED THE PATIENT ON SMOKING EFFECTS, EDUCATION [id number]/03/2019 HOW MANY CIGARETTES A DAY DO YOU SMOKE?6-10 HOW SOON AFTER YOU WAKE UP DO YOU SMOKE YOUR FIRST CIGARETTE?WITHIN 5 MIN HOW OFTEN DO YOU SMOKE CIGARETTES?EVERY DAY PATIENT COUNSELED ON THE DANGERS OF TOBACCO USE AND URGED TO QUIT:09/08/2019 HIV / HEP-C SCREENING HIV TEST OFFERED TO PATIENT:YES DATE OFFERED:01/22/2018 TEST ACCEPTED:YES HEP-C TEST OFFERED TO PATIENT:YES TEST ACCEPTED:NO REASON:PATIENT DECLINED PATIENT HAS BEEN TESTED BROCHURE PROVIDED TO PATIENTYES OTHERS AT HOME: SIGNIFICANT OTHER. EDUCATION LEVEL OF EDUCATION:FINISHED HIGH SCHOOL DIET: REGULAR. LANGUAGE LANGUAGES SPOKEN:SRI [place] DOMESTIC VIOLENCE DO YOU FEEL SAFE IN YOUR ENVIRONMENT?YES NEW PATIENT PAIN DIARY FROM 0-10, WHAT LEVEL IS YOUR PAIN TODAY?5 BMI CARE GOAL FOLLOW-UP ABOVE NORMAL BMI FOLLOW-UPLIFESTYLE EDUCATION REGARDING DIET RECREATIONAL DRUG USE DRUG USE?YES MARIJUANA, DAILY AT BEDTIME EXERCISE: WALKS. LEARNING BARRIERS / SPECIAL NEEDS CHANGE FROM LAST VISIT?NO BARRIERS TO LEARNING?NO HEARING IMPAIRED?NO VISION IMPAIRED?YES COGNITIVELY IMPAIRED?NO :CORRECTIVE LENSES READINESS TO LEARN?YES LEARNING PREFERENCES?NO LEARNING CAPABILITIES PRESENT?YES EMOTIONAL BARRIERS?NO SPECIAL DEVICES?YES :BRACE LEFT KNEE BRACE SPA COORDINATOR NEEDED?NO LUNG CANCER SCREENING SMOKING STATUS:CURRENT SMOKER IS THE PATIENT BETWEEN THE AGE OF 54 AND 76?NO PAIN CLINIC PFS, CLERGY, PUBLIC HEALTH REFERRALS PFS REFERRAL NEEDED?NO CLERGY REFERRAL NEEDED?NO PUBLIC HEALTH REFERRAL NEEDED?NO HAS THE PATIENT BEEN EDUCATED REGARDING HIS/HER PLAN OF CARE?YES DOES USE HEAT FOR PAIN RELIEF BUT ONLY LAST A SHORT TIME. HAS THE PATIENT BEEN EDUCATED REGARDING PAIN, THE RISK FOR PAIN, THE IMPORTANCE OF EFFECTIVE PAIN MANAGEMENT, AND THE PAIN ASSESSMENT PROCESS?YES CAFFEINE CAFFEINE USE?YES ICED TEA ALL DAY OCCASIONAL COFFEE HOW OFTEN AND HOW MUCH? 1/2 POT COFFEE ADVANCE DIRECTIVE ADVANCE DIRECTIVE DISCUSSED WITH PATIENT:YES DECLINED INFO AND ASSISTANCE WITH HCP FORM AT THIS TIME. SIKHISM [id number] ADVENTIST MARITAL STATUS: SINGLE. ALCOHOL SCREENING DID YOU HAVE A DRINK CONTAINING ALCOHOL IN THE PAST YEAR?YES HOW OFTEN DID YOU HAVE SIX OR MORE DRINKS ON ONE OCCASION IN THE PAST YEAR?NEVER (0 POINTS) HOW MANY DRINKS DID YOU HAVE ON A TYPICAL DAY WHEN YOU WERE DRINKING IN THE PAST YEAR?1 OR 2 (0 POINTS) HOW OFTEN DID YOU HAVE A DRINK CONTAINING ALCOHOL IN THE PAST YEAR?MONTHLY OR LESS (1 POINT) POINTS1 INTERPRETATIONNEGATIVE OCCUPATION: UNEMPLOYED. SEXUAL HX HAD SEX IN THE LAST 12 MONTHS (VAGINAL, ORAL, OR ANAL)?YES WITHMEN ONLY PREVENTION STRATEGIES DISCUSSED:OTHER USE PROTECTION?NO LMP:POST MENOPAUSE HAVE YOU EVER HAD AN STD?NO REVIEWED WITH PT 01/05/19 6487 BVREVIEWED WITH PATIENT 09/08/19 1136 NLJ. HOSPITALIZATION/MAJOR DIAGNOSTIC PROCEDURE RUPTURED OVARIAN CYST 08/09/12 RELATED TO SURGERY REVIEW OF SYSTEMS REVIEWED BY: PROVIDER: KAUSHIK MURILLO VIDEO NETWORK ENGINEER-C . CONSTITUTIONAL: ANY CHANGE IN YOUR MEDICAL CONDITION? NO . CHILLS NO . FEVER NO . INFECTION: DO YOU HAVE NEW INFECTIONS? NO . DO YOU HAVE HISTORY OF MRSA? NO . MUSCULOSKELETAL: ANY NEW PATTERNS OF PAIN OR NUMBNESS? YES- STATES PAIN HAS INCREASED IN HER LOWER BACK, STATES THE NUMBNESS GOES DOWN HER RIGHT LEG . GASTROENTEROLOGY: ANY NEW CHANGE IN BOWEL CONTROL? NO . GENITOURINARY: ANY NEW CHANGE IN BLADDER CONTROL? NO . IS THERE A CHANCE YOU COULD BE ? NO . HEMATOLOGY/LYMPH: DO YOU TAKE ANY BLOOD THINNERS? (FOR EXAMPLE- COUMADIN, PLAVIX, AGGRENOX, PLATEL, PRADAXA, OR XARELTO) NO . WHEN WAS YOUR LAST DOSE? DATE: TIME: . NEUROLOGY: HAVE YOU FALLEN IN THE PAST 12 MONTHS? NO- STATES THAT SHE HAS NOT FALLEN SINCE LAST VISIT . ANY NEW EXTREMITY NUMBNESS OR WEAKNESS? YES- STATES SHE HAS NUMBNESS IN BLE, RIGHT IS WORSE THAN LEFT . CARDIOLOGY: DO YOU HAVE A PACEMAKER OR DEFIBRILLATOR? NO . RESPIRATORY: HAVE YOU BEEN SICK IN THE PAST WEEK? NO . FEVER NO . FLU LIKE SYMPTOMS? NO . COUGH NO . INTEGUMENTARY: DO YOU HAVE ANY RASHES OR OPEN SORES? NO . ALLERGIC/IMMUNO: ARE YOU ALLERGIC TO IV DYE? NO . ANY NEW ALLERGIES? NO . PSYCHIATRIC: DO YOU HAVE THOUGHTS OF HURTING YOURSELF OR SOMEONE ELSE? NO . ARE YOU ABUSED, NEGLECTED, OR IN AN UNSAFE ENVIRONMENT? NO . ENDOCRINOLOGY: ARE YOU DIABETIC? NO . OTHER: DO YOU NEED ANY PRESCRIPTIONS? YES . IF YES, PLEASE LIST: ____GABAPENTIN AND FLEXERIL . ANY NEW PROBLEMS WITH YOUR MEDICATIONS? NO . WHEN DID YOU LAST EAT? ____ . WHEN DID YOU LAST DRINK? ____ . WHAT DID YOU LAST DRINK? ____ . NAME OF PERSON DRIVING YOU HOME? ____ . DO YOU HAVE ANY OTHER QUESTIONS OR CONCERNS YES- MRI RESULTS, AND STATES SHE HAS HAD INCREASED LOWER BACK PAIN . VITAL SIGNS WT 160.2 LBS, HT 64 IN, BMI 27.50 INDEX, BP 140/72 MM HG, HR 81 /MIN, RR 16 /MIN, TEMP 98.0 F, OXYGEN SAT % 97%, SAFE IN ENV? (Y/N) YES, NA INITIALS AW 1116, REVIEWED BY: BLANCA. EXAMINATION GENERAL EXAMINATION: GENERALNO ACUTE DISTRESS, WELL NOURISHED AND HYDRATED. PSYCHAPPROPRIATE MOOD AND AFFECT . LUNGS:CLEAR TO AUSCULTATION BILATERALLY, NO WHEEZES, RHONCHI, RALES. HEART:NO MURMURS, REGULAR RATE AND RHYTHM. BACK:POINT TENDER L4-L5 L5-S1 SURROUNDING SKIN SHOWS NO ERYTHEMA , ECCHYMOSIS, INCREASED WARMTH, OR SKIN ERUPTIONS NOTED. INCREASED PAIN WITH FACET LOADING, POSITIVE MODIFIED SLR ON THE RIGHT SIDE. . MUSCULOSKELETAL:EQUAL STRENGTH OF THE LOWER EXTREMITY BILATERALLY . ASSESSMENTS LOW BACK PAIN - M54.5 (PRIMARY) TREATMENT LOW BACK PAIN CONTINUE MELOXICAM TABLET, 15 MG, 1 TABLET, ORALLY, ONCE A DAY, 30 DAYS, 30 TABLET CONTINUE GABAPENTIN CAPSULE, 300 MG, 1 CAPSULE IN AM AND AFTERNOON 2 CAPS AT BEDTIME, ORALLY, THREE TIMES DAILY, 30 DAYS, 120 REFILL FLEXERIL TABLET, 10 MG, 1TABLET, ORALLY, THREE TIMES DAILY NEEDED, 30 DAYS, 90 CLINICAL NOTES: 54-YEAR-OLD FEMALE IN FOR MRI REVIEW. GIVEN PRESENTING SYMPTOMS AND RESULTS OF PHYSICAL EXAMINATION RECOMMENDED LESI L4-L5 L5-S1 WITH POST PROCEDURAL FOLLOW-UP. FURTHER RECOMMENDED INCREASING GABAPENTIN TO 300 MG IN THE A.M., 300 IN THE AFTERNOON, AND 600 AT BEDTIME. WILL INCREASE MELOXICAM TO 15 MG DAILY. PATIENT ENCOURAGED NOT TO TAKE OTHER NSAIDS WHILE ON THE MELOXICAM AND TO TAKE WITH FOOD. MRI RESULTS WERE REVEIWED WITH PATIENT. PATIENT HAS EXPRESSED UNDERSTANDING OF AND WAS IN AGREEMENT WITH TREATMENT PLAN. GIVEN TIME TO ASK QUESTIONS AND EXPRESS CONCERNS. PREVENTIVE MEDICINE PAIN CLINIC TEACHING: PROCEDURE TEACHING LUMBAR EPIDURAL STEROID INJECTION PROCEDURE TEACHING PRINTED AND REVIEWED WITH PT 09/08/19 1209 BLANCA. PROCEDURE CODES FA211 ESTABILISHED PATIENT [facility] CHARGE DISPOSITION & COMMUNICATION FOLLOW UP POSTPROCEDURE (REASON: LESI L4-L5 L5-S1) ELECTRONICALLY SIGNED BY MAYA FERRELL ON 09/09/2019 AT 09:12 AM EDT DISCLAIMER : THIS IS A VISIT SUMMARY EXTRACTED FROM THE [employer] CHART. IT IS NOT A COPY OF THE [employer] PROGRESS NOTE. DAVONTE
== END ==
LOC: M PAIN 11:00
PROVIDERS: ATTEND Family Medicine
DX: M54.5 Low back pain (principal); G47.30 Sleep apnea, unspecified; M79.7 Fibromyalgia; M19.90 Unspecified osteoarthritis, unspecified site; E03.9 Hypothyroidism, unspecified; M41.9 Scoliosis, unspecified; F17.210 Nicotine dependence, cigarettes, uncomplicated; Z88.5 Allergy status to narcotic agent; Z88.6 Allergy status to analgesic agent; Z88.8 Allergy status to other drugs, medicaments and biological substances; Z79.899 Other long term (current) drug therapy

== ENCOUNTER 2019-09-11 09:11 | Emergency (ER) | payer OTHER ==
[~2019-09-11] VITALS: Ht 162.6 cm; Wt 72.7 kg
[~2019-09-11 09:11] MED LIST changes: -ATOR1TAB21 PO; -GABA-843 PO; -SOMA250T PO
[2019-09-11] MEDS ORDERED: ATOR1TAB21 PO (09:20)
[2019-09-11] MEDS ORDERED: GABA-843 PO (09:20)
[2019-09-11] MEDS ORDERED: TRUVTAB PO (09:20)
[2019-09-11] MEDS ORDERED: BUPIVACAINE HCL 0.25% 10 ML VIAL IM ONE (09:45)
[2019-09-11] MEDS ORDERED: diazePAM 5 MG TAB PO ONE (09:45)
[2019-09-11] MEDS ORDERED: predniSONE 20 MG TAB PO ONE (09:45)
--- NOTE | 2019-09-11 10:21 | REP ---
Right knee five views : There is no fracture or dislocation. Mineralization and joint spaces are normal. There are no calcifications or foreign bodies. Impression: Negative right knee . Electronically Signed by Ochoa Dhaliwal MD 09/11/2019 10:12 A
--- NOTE | 2019-09-11 10:23 | REP ---
PELVIS AND RIGHT HIP: AP view of the pelvis and two views of the right hip are performed and demonstrate no fracture or dislocation. There is very mild joint space narrowing and subchondral sclerosis at both hip joints. There appears to be mild sclerosis at the sacroiliac joints. IMPRESSION :Very mild degenerative changes. No fracture or dislocation. Electronically Signed by Ochoa Alvarado MD 09/15/2019 08:44 A
[2019-09-11] MEDS ORDERED: SOMA250T PO (11:42)
[2019-09-11 11:57] VITALS: BP 159/89
== END 2019-09-11 12:00 | disposition home or self-care (01) ==
LOC: M ED 09:11 → EDBD 09:11 → EDSEX 09:11 → M ED 12:00
DX: M54.9 Dorsalgia, unspecified (principal); G47.30 Sleep apnea, unspecified; M79.7 Fibromyalgia; F17.200 Nicotine dependence, unspecified, uncomplicated; Z79.899 Other long term (current) drug therapy; Z88.6 Allergy status to analgesic agent; Z88.5 Allergy status to narcotic agent; Z91.040 Latex allergy status

== ENCOUNTER → 2019-10-14 | Outpatient (CLI) | payer OTHER ==
[~2019-10-14] MED LIST changes: +ATOR1TAB21 PO; +GABA-843 PO; +SOMA250T PO
== END ==
LOC: M PAIN 14:15
PROVIDERS: ATTEND Anesthesiology
DX: M54.5 Low back pain (principal); Z53.8 Procedure and treatment not carried out for other reasons

== ENCOUNTER → 2019-12-07 | Outpatient (REF) | payer OTHER ==
[2019-12-07 19:17] LABS: BASO % 0.5 % (0.0-1.0); EOS # 0.1 10^3/uL (0.0-0.5); EOS % 1.5 % (0.0-3.0); HEMATOCRIT 42.1 % (36.0-47.0); HEMOGLOBIN 13.3 g/dl (12.0-15.5); LYMPH # 1.6 10^3/uL (1.5-5.0); LYMPH % 20.5 % (24.0-44.0); MEAN CORPUSCULAR HEMOGLOBIN 29.2 pg (27.0-33.0); MEAN CORPUSCULAR HGB CONC 31.6 g/dl (32.0-36.5); MEAN CORPUSCULAR VOLUME 92.3 fl (80.0-96.0); MONO # 0.5 10^3/uL (0.0-0.8); MONO % 6.2 % (0.0-5.0); NEUTROPHILS # 5.6 10^3/uL (1.5-8.5); PLATELET COUNT, AUTOMATED 346 10^3/uL (150-450); RED BLOOD COUNT 4.56 10^6/uL (4.00-5.40); WHITE BLOOD COUNT 7.9 10^3/uL (4.0-10.0)
[2019-12-07 19:30] LABS: ALT/SGPT 18 U/L (12-78); BILIRUBIN,TOTAL 0.4 MG/DL (0.2-1.0); BLOOD UREA NITROGEN 9 MG/DL (7-18); CALCIUM LEVEL 9.2 MG/DL (8.5-10.1); CARBON DIOXIDE LEVEL 26 MEQ/L (21-32); CHLORIDE LEVEL 104 MEQ/L (98-107); CHOLESTEROL LEVEL 186 MG/DL (<200); CHOLESTEROL RISK RATIO 4.325 (<5); CREATININE FOR GFR 0.85 MG/DL (0.55-1.30); FREE T4 0.79 NG/DL (0.76-1.46); GLOMERULAR FILTRATION RATE > 60.0 (>51); GLUCOSE, FASTING 89 MG/DL (70-100); HDL CHOLESTEROL 43 MG/DL (>40); LDL CHOLESTEROL 102 MG/DL (<100); NON-HDL-C 143 MG/DL; POTASSIUM SERUM 4.3 MEQ/L (3.5-5.1); SODIUM LEVEL 139 MEQ/L (136-145); TOTAL PROTEIN 7.8 GM/DL (6.4-8.2); TRIGLYCERIDES LEVEL 204 MG/DL (<150)
[2019-12-07 19:43] LABS: HEMOGLOBIN A1c 6.2 %
[2019-12-09 10:05] LABS: HIV 1&2 SCREEN CENTAUR NEGATIVE (NEGATIVE)
== END ==
LOC: M LAB REF 18:39
PROVIDERS: ATTEND Nurse Practitioner Family
DX: E78.5 Hyperlipidemia, unspecified (principal); R73.03 Prediabetes

== ENCOUNTER → 2019-12-22 | Outpatient (CLI) | payer OTHER ==
--- NOTE | 2019-12-23 02:29 | REP ---
Clinical: Arthritic pain. Technique: AP, lateral, bilateral oblique views of the right hand. Findings: No acute fracture dislocation. No obvious healed injury. Examination demonstrates essentially age-related changes with minimal subchondral sclerosis and mild joint space narrowing primarily involving the interphalangeal joints and first metacarpophalangeal joint. No overt osteoarthritic changes noted. Impression: Age-related changes. Electronically Signed by Gabriele Stewart MD 12/23/2019 02:20 A
--- NOTE | 2019-12-23 02:29 | REP ---
Clinical: Pain and disability. Technique: AP, lateral, bilateral oblique and sunrise views of the right knee. Findings: No acute fracture dislocation. Generalized age-related changes are appreciated. No overt osteoarthritic degenerative findings noted. No obvious effusion. No significant prepatellar swelling. Impression: Generalized age-related changes. Electronically Signed by Gabriele Stewart MD 12/23/2019 02:21 A
== END ==
LOC: M RAD 14:08
PROVIDERS: ATTEND Internal Medicine
DX: M19.90 Unspecified osteoarthritis, unspecified site (principal)

== ENCOUNTER → 2019-12-29 | Outpatient (CLI) | payer OTHER ==
--- NOTE | 2019-12-31 00:48 | ECWPNPC ---
PATIENT NAME: ARNAV SPEARS : 1965 GENDER: FEMALE VISIT DATE: 12/29/2019 DISCHARGE DATE: 12/29/19 1352 VISIT LOCKED DATE TIME: PHYSICIAN: SOFIA MURILLO RESOURCE: SOFIA MURILLO REASON FOR APPOINTMENT 1. REVIEW MRI HISTORY OF PRESENT ILLNESS HISTORY OF PRESENT ILLNESS: PAIN THE PATIENT DESCRIBES THE PAIN... 54-YEAR-OLD FEMALE IN FOR CHRONIC PAIN FOLLOW-UP. SHE RATES HER PAIN CURRENTLY AT AN 8 OUT OF 10 AND DESCRIBES IT ACHING, SHARP, BURNING, STABBING, SORE, AND SHOOTING. LESI WAS ORDERED AT LAST CLINIC VISIT HOWEVER PATIENT DID NOT HAVE PERFORMED HER ORTHOPEDIC PROVIDER RECOMMENDED SHE NOT HAVE A PROCEDURE PERFORMED UNTIL AN EMG STUDY WAS FINISHED. PATIENT DOES ADMIT TO A UPCOMING TRIGGER POINT INJECTIONS WITH DR. WINTERS. FALL RISK SCREENING: SCREENING :NO FALLS REPORTED IN THE LAST YEAR CURRENT MEDICATIONS TAKING LEVOTHYROXINE SODIUM 75 MCG TABLET 1 TABLET ORALLY ONCE A DAY TAKING CELEXA 40 MG TABLET 1 TABLET ORALLY ONCE A DAY TAKING ATORVASTATIN CALCIUM 20 MG TABLET 1 TABLET ORALLY ONCE A DAY TAKING TRUVADA 200-300 MG TABLET TAKE ONE TABLET BY MOUTH EVERY DAY ORALLY DAILY TAKING ACETAMINOPHEN 500 MG CAPSULE 1 CAPSULE NEEDED ORALLY EVERY 6 HRS TAKING COLACE 100 MG CAPSULE 1 CAPSULE NEEDED ORALLY TWICE A DAY TAKING MELOXICAM 15 MG TABLET 1 TABLET ORALLY ONCE A DAY NEEDED TAKING FLEXERIL 10 MG TABLET 1TABLET ORALLY THREE TIMES DAILY NEEDED TAKING GABAPENTIN 300 MG CAPSULE 1 CAPSULE IN AM AND AFTERNOON 2 CAPS AT BEDTIME ORALLY THREE TIMES DAILY MEDICATION LIST REVIEWED AND RECONCILED WITH THE PATIENT PAST MEDICAL HISTORY SLEEP APNEA: BIPAP: ANAMIKA VIGIL PULMONOLOGY FIBROMYALGIA HX DYSPLASIA BENIGN RIGHT AND LEFT BREAST LUMPS RUPTURED LEFT OVARIAN CYST (08/13) PERIMENOPAUSE 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 BULGING DISCS IN THE NECK ARTHRITIS HYPOTHYROIDISM SCOLIOSIS HERNIATED DISCS - LUMBAR SPINE ALLERGIES NAPROXEN: HIVES - ALLERGY EFFEXOR XR: DIZZINESS, HAS, FLUSHING, NAUSEA, SHAKINESS - SIDE EFFECTS VICODIN: NAUSEA/VOMITING - SIDE EFFECTS SURGICAL HISTORY T & A BREAST BIOPSY, RIGHT X 2 BENIGN C SECTION ARTHROSCOPY KNEE SURGERY, LEFT LEEP BREAST BX, LEFT BENIGN DEVIATED SEPTUM REPAIR PALATEOPLASTY WISDOM TEETH SPINE INJECTIONS COLONOSCOPY 2012 FAMILY HISTORY FATHER: 72 YRS, SUICIDE, NO KNOWN MEDICAL PROBLEMS MOTHER: ALIVE 74 YRS, MIGRAINE, HTN, MELANOMA SIBLINGS: SISTER WITH MIGRAINE 2 BROTHER(S) , 1 SISTER(S) - HEALTHY. 1 SON(S) - HEALTHY. SOCIAL HISTORY GENERAL: TOBACCO USE ARE YOU A:CURRENT SMOKER ARE YOU INTERESTED IN QUITTING?NOT READY TO QUIT COUNSELED THE PATIENT ON SMOKING EFFECTS, EDUCATION [id number]/28/2020 HOW MANY CIGARETTES A DAY DO YOU SMOKE?6-10 HOW SOON AFTER YOU WAKE UP DO YOU SMOKE YOUR FIRST CIGARETTE?WITHIN 5 MIN HOW OFTEN DO YOU SMOKE CIGARETTES?EVERY DAY PATIENT COUNSELED ON THE DANGERS OF TOBACCO USE AND URGED TO QUIT:12/29/2019 HIV / HEP-C SCREENING HIV TEST OFFERED TO PATIENT:YES DATE OFFERED:01/22/2018 TEST ACCEPTED:YES HEP-C TEST OFFERED TO PATIENT:YES TEST ACCEPTED:NO REASON:PATIENT DECLINED PATIENT HAS BEEN TESTED BROCHURE PROVIDED TO PATIENTYES OTHERS AT HOME: SIGNIFICANT OTHER. EDUCATION LEVEL OF EDUCATION:FINISHED HIGH SCHOOL DIET: REGULAR. LANGUAGE LANGUAGES SPOKEN:THAI DOMESTIC VIOLENCE DO YOU FEEL SAFE IN YOUR ENVIRONMENT?YES NEW PATIENT PAIN DIARY FROM 0-10, WHAT LEVEL IS YOUR PAIN TODAY?5 BMI CARE GOAL FOLLOW-UP ABOVE NORMAL BMI FOLLOW-UPLIFESTYLE EDUCATION REGARDING DIET RECREATIONAL DRUG USE DRUG USE?YES MARIJUANA, DAILY AT BEDTIME EXERCISE: WALKS. LEARNING BARRIERS / SPECIAL NEEDS CHANGE FROM LAST VISIT?NO BARRIERS TO LEARNING?NO HEARING IMPAIRED?NO VISION IMPAIRED?YES COGNITIVELY IMPAIRED?NO :CORRECTIVE LENSES READINESS TO LEARN?YES LEARNING PREFERENCES?NO LEARNING CAPABILITIES PRESENT?YES EMOTIONAL BARRIERS?NO SPECIAL DEVICES?YES :BRACE LEFT KNEE BRACE STOPER NEEDED?NO LUNG CANCER SCREENING SMOKING STATUS:CURRENT SMOKER IS THE PATIENT BETWEEN THE AGE OF 54 AND 76?NO PAIN CLINIC PFS, CLERGY, PUBLIC HEALTH REFERRALS PFS REFERRAL NEEDED?NO CLERGY REFERRAL NEEDED?NO PUBLIC HEALTH REFERRAL NEEDED?NO HAS THE PATIENT BEEN EDUCATED REGARDING HIS/HER PLAN OF CARE?YES DOES USE HEAT FOR PAIN RELIEF BUT ONLY LAST A SHORT TIME. HAS THE PATIENT BEEN EDUCATED REGARDING PAIN, THE RISK FOR PAIN, THE IMPORTANCE OF EFFECTIVE PAIN MANAGEMENT, AND THE PAIN ASSESSMENT PROCESS?YES LATEX QUESTIONNAIRE LATEX ALLERGY : HAVE YOU EVER DEVELOPED ANY TYPE OF REACTION AFTER HANDLING LATEX PRODUCTS SUCH RUBBER GLOVES, CONDOMS, DIAPHRAGMS, BALLOONS, SOCKS, OR UNDERWEAR?NO LATEX ALLERGY : HAVE YOU EVER DEVELOPED ANY TYPE OF REACTION DURING OR AFTER DENTAL APPOINTMENT, VAGINAL/RECTAL EXAMINATION, SURGICAL PROCEDURE, OR ANY OTHER EXPOSURE?NO LATEX RISK : HAVE YOU EVER HAD ANY DIFFICULTY BREATHING OR HIVES AFTER EATING OR HANDLING ANY FRUITS, OR VEGETABLES; SUCH KIWI, BANANAS, STONE FRUITS, OR CHESTNUTSNO LATEX RISK : DO YOU HAVE A PREVIOUS PERSONAL HISTORY OF MORE THAN NINE SURGERIES, SPINA BIFIDA, OR REPEATED CATHERIZATIONS? YES - PLEASE INDICATE : > 9 SURGERIES LATEX RISK : ARE YOU FREQUENTLY EXPOSED TO LATEX PRODUCTS IN YOUR OCCUPATION?NO DATE ASKED : 12/03/2019 CAFFEINE CAFFEINE USE?YES ICED TEA ALL DAY OCCASIONAL COFFEE HOW OFTEN AND HOW MUCH? 1/2 POT COFFEE ADVANCE DIRECTIVE ADVANCE DIRECTIVE DISCUSSED WITH PATIENT:YES 12/29/2019 PT DECLINED INFO AND ASSISTANCE WITH HCP FORM AT THIS TIME. JS CONFUCIANIST [id number] SABIANIST MARITAL STATUS: SINGLE. ALCOHOL SCREENING DID YOU HAVE A DRINK CONTAINING ALCOHOL IN THE PAST YEAR?YES HOW OFTEN DID YOU HAVE SIX OR MORE DRINKS ON ONE OCCASION IN THE PAST YEAR?NEVER (0 POINTS) HOW MANY DRINKS DID YOU HAVE ON A TYPICAL DAY WHEN YOU WERE DRINKING IN THE PAST YEAR?1 OR 2 (0 POINTS) HOW OFTEN DID YOU HAVE A DRINK CONTAINING ALCOHOL IN THE PAST YEAR?MONTHLY OR LESS (1 POINT) POINTS1 INTERPRETATIONNEGATIVE OCCUPATION: UNEMPLOYED. SEXUAL HX HAD SEX IN THE LAST 12 MONTHS (VAGINAL, ORAL, OR ANAL)?YES WITHMEN ONLY PREVENTION STRATEGIES DISCUSSED:OTHER USE PROTECTION?NO LMP:POST MENOPAUSE HAVE YOU EVER HAD AN STD?NO REVIEWED WITH PT 01/05/19 1447 BVREVIEWED WITH PATIENT 09/08/19 1136 NLJREVIEWED WITH PATIENT 12/29/2019 1326 WOODY. HOSPITALIZATION/MAJOR DIAGNOSTIC PROCEDURE RELATED TO SURGERY REVIEW OF SYSTEMS REVIEWED BY: PROVIDER: KAUSHIK SEAMAN . CONSTITUTIONAL: ANY CHANGE IN YOUR MEDICAL CONDITION? YES, STATES HERNIATED DISCS AND PINCHED NERVES IN LUMBAR SPINE PER ORTHO . CHILLS NO . FEVER NO . INFECTION: DO YOU HAVE NEW INFECTIONS? NO . DO YOU HAVE HISTORY OF MRSA? NO . MUSCULOSKELETAL: ANY NEW PATTERNS OF PAIN OR NUMBNESS? YES, STATES PAIN WORSENING ESPECIALLY ON THE RIGHT SIDE - BACK, HIP, GROIN, LEG . GASTROENTEROLOGY: ANY NEW CHANGE IN BOWEL CONTROL? NO . GENITOURINARY: ANY NEW CHANGE IN BLADDER CONTROL? NO . IS THERE A CHANCE YOU COULD BE ? NO . HEMATOLOGY/LYMPH: DO YOU TAKE ANY BLOOD THINNERS? (FOR EXAMPLE- COUMADIN, PLAVIX, AGGRENOX, PLATEL, PRADAXA, OR XARELTO) NO . WHEN WAS YOUR LAST DOSE? DATE: TIME: . NEUROLOGY: HAVE YOU FALLEN IN THE PAST 12 MONTHS? YES, TWICE IN OCTOBER - DISCUSSED AT PREVIOUS VISIT . ANY NEW EXTREMITY NUMBNESS OR WEAKNESS? NO . CARDIOLOGY: DO YOU HAVE A PACEMAKER OR DEFIBRILLATOR? NO . RESPIRATORY: HAVE YOU BEEN SICK IN THE PAST WEEK? NO . FEVER NO . FLU LIKE SYMPTOMS? NO . COUGH YES . INTEGUMENTARY: DO YOU HAVE ANY RASHES OR OPEN SORES? NO . ALLERGIC/IMMUNO: ARE YOU ALLERGIC TO IV DYE? NO . ANY NEW ALLERGIES? NO . PSYCHIATRIC: DO YOU HAVE THOUGHTS OF HURTING YOURSELF OR SOMEONE ELSE? NO . ARE YOU ABUSED, NEGLECTED, OR IN AN UNSAFE ENVIRONMENT? NO . ENDOCRINOLOGY: ARE YOU DIABETIC? NO . OTHER: DO YOU NEED ANY PRESCRIPTIONS? YES . IF YES, PLEASE LIST: ____FLEXERIL, GABAPENTIN, MELOXICAM . ANY NEW PROBLEMS WITH YOUR MEDICATIONS? NO . WHEN DID YOU LAST EAT? ____ . WHEN DID YOU LAST DRINK? ____ . WHAT DID YOU LAST DRINK? ____ . NAME OF PERSON DRIVING YOU HOME? ____ . DO YOU HAVE ANY OTHER QUESTIONS OR CONCERNS NO . VITAL SIGNS WT 166.6 LBS, HT 64 IN, BMI 28.59 INDEX, BP 135/85 MM HG, HR 75 /MIN, RR 16 /MIN, TEMP 98.2 F, OXYGEN SAT % 99%, SAFE IN ENV? (Y/N) YES, REVIEWED BY: WOODY. EXAMINATION GENERAL EXAMINATION: GENERALNO ACUTE DISTRESS, WELL NOURISHED AND HYDRATED. PSYCHAPPROPRIATE MOOD AND AFFECT . LUNGS:CLEAR TO AUSCULTATION BILATERALLY, NO WHEEZES, RHONCHI, RALES. HEART:NO MURMURS, REGULAR RATE AND RHYTHM. ASSESSMENTS LOW BACK PAIN - M54.5 (PRIMARY) TREATMENT LOW BACK PAIN REFILL MELOXICAM TABLET, 15 MG, 1 TABLET, ORALLY, ONCE A DAY NEEDED, 30 DAYS, 30 STOP FLEXERIL TABLET, 10 MG, 1TABLET, ORALLY, THREE TIMES DAILY NEEDED REFILL GABAPENTIN CAPSULE, 300 MG, 1 CAPSULE IN AM AND AFTERNOON 2 CAPS AT BEDTIME, ORALLY, THREE TIMES DAILY, 30 DAYS, 120 START TIZANIDINE HCL TABLET, 4 MG, 1 TABLET NEEDED, ORALLY, THREE TIMES A DAY, 30 DAYS, 90 TABLET, REFILLS 1 CLINICAL NOTES: 54-YEAR-OLD FEMALE IN FOR CHRONIC PAIN FOLLOW-UP. GIVEN PRESENTING SYMPTOMS AND RESULTS OF PHYSICAL EXAMINATION RECOMMENDED STOPPING FLEXERIL AND STARTING TIZANIDINE 4 MG 3 TIMES A DAY NEEDED WITH FOLLOW-UP IN 2 MONTHS TO DETERMINE EFFICACY OF TREATMENT. PATIENT DOES HAVE UPCOMING TRIGGER POINT INJECTIONS WITH DR. WINTERS. PATIENT HAS EXPRESSED UNDERSTANDING OF AND WAS IN AGREEMENT WITH TREATMENT PLAN. GIVEN TIME TO ASK QUESTIONS AND EXPRESS CONCERNS. PREVENTIVE MEDICINE PAIN CLINIC TEACHING: MEDICATIONS INSTRUCTIONS REGARDING NEW MEDICATION TIZANIDINE PROVIDED TO PT. VERBALIZED UNDERSTANDING.. PROCEDURE CODES FA211 ESTABILISHED PATIENT [facility] CHARGE DISPOSITION & COMMUNICATION FOLLOW UP 2 MONTHS (REASON: LOW BACK PAIN, NEW MEDICATION) ELECTRONICALLY SIGNED BY MAYA FERRELL ON 12/30/2019 AT 03:47 PM EST DISCLAIMER : THIS IS A VISIT SUMMARY EXTRACTED FROM THE [employer] CHART. IT IS NOT A COPY OF THE [employer] PROGRESS NOTE. DAVONTE
== END ==
LOC: M PAIN 13:00
PROVIDERS: ATTEND Family Medicine
DX: M54.5 Low back pain (principal); G89.29 Other chronic pain; G47.30 Sleep apnea, unspecified; M79.7 Fibromyalgia; E03.9 Hypothyroidism, unspecified; F17.210 Nicotine dependence, cigarettes, uncomplicated; Z88.5 Allergy status to narcotic agent; Z88.6 Allergy status to analgesic agent; Z88.8 Allergy status to other drugs, medicaments and biological substances; Z79.899 Other long term (current) drug therapy

== ENCOUNTER → 2020-02-08 | Outpatient (CLI) | payer OTHER ==
[2020-02-08 10:41] LABS: PLATELET COUNT, AUTOMATED 394 10^3/uL (150-450)
[2020-02-08 10:43] LABS: INR 0.89; PROTHROMBIN TIME 11.8 SECONDS (11.8-14.0)
[2020-02-08 10:44] LABS: PARTIAL THROMBOPLASTIN TIME 36.3 SECONDS (25.0-38.4)
[2020-02-08 10:50] LABS: COLLAGEN EPINEPHRINE 162 SECONDS (74-162)
== END ==
LOC: M PLALAB 08:17
PROVIDERS: ATTEND Physical Medicine & Rehabilitation
DX: Z01.812 Encounter for preprocedural laboratory examination (principal); D69.1 Qualitative platelet defects; D68.9 Coagulation defect, unspecified; E46 Unspecified protein-calorie malnutrition; Z79.01 Long term (current) use of anticoagulants

== ENCOUNTER → 2020-03-29 | Outpatient (CLI) | payer OTHER ==
[~2020-03-29] MED LIST changes: +CYCL-707 PO; -CYCL10TA PO
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
== END ==
LOC: M PAIN 13:00
PROVIDERS: ATTEND Family Medicine
DX: M54.5 Low back pain (principal); E03.9 Hypothyroidism, unspecified; F17.210 Nicotine dependence, cigarettes, uncomplicated; Z79.899 Other long term (current) drug therapy; Z88.5 Allergy status to narcotic agent; Z88.6 Allergy status to analgesic agent

== ENCOUNTER → 2020-05-05 | Outpatient (REF) | payer OTHER, MEDICAID ==
[2020-05-05 17:45] LABS: BASO # 0.1 10^3/uL (0.0-0.2); BASO % 0.7 % (0.0-1.0); EOS # 0.2 10^3/uL (0.0-0.5); EOS % 1.8 % (0.0-3.0); HEMATOCRIT 39.9 % (36.0-47.0); HEMOGLOBIN 13.1 g/dl (12.0-15.5); LYMPH # 2.4 10^3/uL (1.5-5.0); MEAN CORPUSCULAR HEMOGLOBIN 30.3 pg (27.0-33.0); MEAN CORPUSCULAR HGB CONC 32.8 g/dl (32.0-36.5); MEAN CORPUSCULAR VOLUME 92.1 fl (80.0-96.0); MONO # 0.6 10^3/uL (0.0-0.8); MONO % 5.4 % (0.0-5.0); NEUTROPHILS # 6.9 10^3/uL (1.5-8.5); NEUTROPHILS % 67.8 % (36.0-66.0); PLATELET COUNT, AUTOMATED 409 10^3/uL (150-450); RED BLOOD COUNT 4.33 10^6/uL (4.00-5.40); WHITE BLOOD COUNT 10.2 10^3/uL (4.0-10.0)
[2020-05-05 17:58] LABS: ALBUMIN 3.9 GM/DL (3.2-5.2); ALT/SGPT 20 U/L (12-78); BILIRUBIN,TOTAL 0.3 MG/DL (0.2-1.0); BLOOD UREA NITROGEN 14 MG/DL (7-18); CARBON DIOXIDE LEVEL 25 MEQ/L (21-32); CHLORIDE LEVEL 106 MEQ/L (98-107); CHOLESTEROL LEVEL 170 MG/DL (<200); CHOLESTEROL RISK RATIO 4.473 (<5); CREATININE FOR GFR 0.94 MG/DL (0.55-1.30); FREE T4 0.96 NG/DL (0.76-1.46); GLOMERULAR FILTRATION RATE > 60.0 (>51); GLUCOSE, FASTING 132 MG/DL (70-100); HDL CHOLESTEROL 38 MG/DL (>40); LDL CHOLESTEROL 96 MG/DL (<100); NON-HDL-C 132 MG/DL; POTASSIUM SERUM 4.1 MEQ/L (3.5-5.1); SODIUM LEVEL 139 MEQ/L (136-145); TOTAL PROTEIN 7.5 GM/DL (6.4-8.2); TRIGLYCERIDES LEVEL 182 MG/DL (<150)
[2020-05-05 18:48] LABS: HEMOGLOBIN A1c 6.3 %
[2020-05-06 09:51] LABS: HIV 1&2 SCREEN CENTAUR NEGATIVE (NEGATIVE)
== END ==
LOC: M LAB REF 16:43
PROVIDERS: ATTEND Nurse Practitioner Family
DX: R73.03 Prediabetes (principal); E78.5 Hyperlipidemia, unspecified; Z72.0 Tobacco use; Z20.6 Contact with and (suspected) exposure to human immunodeficiency virus [HIV]; E03.9 Hypothyroidism, unspecified; R03.0 Elevated blood-pressure reading, without diagnosis of hypertension; Z13.9 Encounter for screening, unspecified; F32.9 Major depressive disorder, single episode, unspecified

== ENCOUNTER → 2020-05-13 | Outpatient (CLI) | payer OTHER | LOC: M LABSMTC 13:09 | PROVIDERS: ATTEND Physical Medicine & Rehabilitation | DX: Z01.818 Encounter for other preprocedural examination (principal); Z11.59 Encounter for screening for other viral diseases; Z03.818 Encounter for observation for suspected exposure to other biological agents ruled out ==

== ENCOUNTER → 2020-05-30 | Outpatient (CLI) | payer OTHER ==
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
== END ==
LOC: M PAIN 13:45
PROVIDERS: ATTEND Family Medicine
DX: M50.30 Other cervical disc degeneration, unspecified cervical region (principal); M54.5 Low back pain

== ENCOUNTER → 2020-06-21 | Outpatient (REF) | payer OTHER | LOC: M SFHCWAGY 10:15 | PROVIDERS: ATTEND Nurse Practitioner Family | DX: Z12.4 Encounter for screening for malignant neoplasm of cervix (principal); Z01.419 Encounter for gynecological examination (general) (routine) without abnormal findings ==

== ENCOUNTER → 2020-06-21 | Outpatient (CLI) | payer OTHER ==
--- NOTE | 2020-06-21 14:55 | REPMRS ---
Patient History The patient states she had a clinical breast exam in June 2020.Family history of prostate cancer in paternal uncle. 9 benign core biopsies of both breasts, 2005. Benign core biopsy of the right breast, 1999. Digital Woman Screen Mammo: June 21, 2020 - Exam #: [id number] Bilateral CC and MLO view(s) were taken. Technologist: Farzaneh Burnett, Technologist Prior study comparison: March 25, 2018, digital woman screen mammo performed at [facility]. September 27, 2016, digital woman screen mammo performed at [facility]. July 05, 2015, digital woman screen mammo performed at [facility]. FINDINGS: There are scattered fibroglandular densities. The Volpara volumetric breast density category is:B. There has been no change in the appearance of the mammogram from the prior studies. There is a mild amount of scattered fibroglandular density which is fairly symmetric. There is no interval development of dominant mass, architectural distortion, or grouped microcalcification suggestive of malignancy. 3-D tomosynthesis shows no additional findings. Assessment: BI-RADS/ACR category 1 mammogram. Negative Mammogram. Recommendation Routine screening mammogram of both breasts in 1 year (for women over age 40). This patient's Lifetime Breast Cancer Risk is estimated at 7.0 %. This mammogram was interpreted with the aid of an FDA-approved computer-aided dectection system. Electronically Signed By: Jun Albert MD 06/21/20 6031
== END ==
LOC: M WHC 08:12
PROVIDERS: ATTEND Nurse Practitioner Family
DX: Z12.31 Encounter for screening mammogram for malignant neoplasm of breast (principal); Z86.018 Personal history of other benign neoplasm

== ENCOUNTER → 2020-06-27 | Outpatient (CLI) | payer OTHER | LOC: M PAIN 10:45 | PROVIDERS: ATTEND Family Medicine | DX: M50.30 Other cervical disc degeneration, unspecified cervical region (principal) ==

== ENCOUNTER → 2020-08-23 | Outpatient (REF) | payer OTHER, MEDICAID ==
[2020-08-23 12:34] LABS: BASO # 0.1 10^3/uL (0.0-0.2); BASO % 0.9 % (0.0-1.0); EOS # 0.2 10^3/uL (0.0-0.5); EOS % 2.2 % (0.0-3.0); HEMATOCRIT 38.7 % (36.0-47.0); HEMOGLOBIN 12.3 g/dl (12.0-15.5); LYMPH # 2.1 10^3/uL (1.5-5.0); LYMPH % 31.5 % (24.0-44.0); MEAN CORPUSCULAR HEMOGLOBIN 29.1 pg (27.0-33.0); MEAN CORPUSCULAR HGB CONC 31.8 g/dl (32.0-36.5); MEAN CORPUSCULAR VOLUME 91.7 fl (80.0-96.0); MONO # 0.4 10^3/uL (0.0-0.8); MONO % 6.4 % (0.0-5.0); NEUTROPHILS % 58.7 % (36.0-66.0); PLATELET COUNT, AUTOMATED 375 10^3/uL (150-450); RED BLOOD COUNT 4.22 10^6/uL (4.00-5.40); WHITE BLOOD COUNT 6.7 10^3/uL (4.0-10.0)
[2020-08-23 12:49] LABS: ALBUMIN 3.7 GM/DL (3.2-5.2); ALT/SGPT 27 U/L (12-78); BILIRUBIN,TOTAL 0.2 MG/DL (0.2-1.0); BLOOD UREA NITROGEN 9 MG/DL (7-18); CALCIUM LEVEL 8.8 MG/DL (8.5-10.1); CARBON DIOXIDE LEVEL 24 MEQ/L (21-32); CHLORIDE LEVEL 105 MEQ/L (98-107); CHOLESTEROL LEVEL 181 MG/DL (<200); CHOLESTEROL RISK RATIO 4.113 (<5); FREE T4 0.74 NG/DL (0.76-1.46); GLOMERULAR FILTRATION RATE 54.7 (>51); GLUCOSE, FASTING 128 MG/DL (70-100); HDL CHOLESTEROL 44 MG/DL (>40); LDL CHOLESTEROL 84 MG/DL (<100); NON-HDL-C 137 MG/DL; SODIUM LEVEL 138 MEQ/L (136-145); TRIGLYCERIDES LEVEL 266 MG/DL (<150)
[2020-08-23 13:31] LABS: HIV 1&2 SCREEN CENTAUR NEGATIVE (NEGATIVE)
[2020-08-23 14:36] LABS: HEMOGLOBIN A1c 6.2 %
== END ==
LOC: M LAB REF 12:02
PROVIDERS: ATTEND Nurse Practitioner Family
DX: Z11.3 Encounter for screening for infections with a predominantly sexual mode of transmission (principal); Z13.9 Encounter for screening, unspecified; R73.03 Prediabetes; E78.5 Hyperlipidemia, unspecified; Z72.0 Tobacco use; E66.3 Overweight; E03.9 Hypothyroidism, unspecified

== ENCOUNTER → 2020-08-31 | Outpatient (CLI) | payer OTHER | LOC: M LABSMTC 09:51 | PROVIDERS: ATTEND Physical Medicine & Rehabilitation | DX: Z01.812 Encounter for preprocedural laboratory examination (principal); Z20.828 Contact with and (suspected) exposure to other viral communicable diseases ==

== ENCOUNTER → 2020-10-18 | Outpatient (REF) | payer OTHER, MEDICAID ==
[2020-10-18 13:56] LABS: FREE T4 0.87 NG/DL (0.76-1.46); THYROID STIMULATING HORMONE 1.39 uIU/ML (0.358-3.740)
== END ==
LOC: M LAB REF 12:37
PROVIDERS: ATTEND Nurse Practitioner Family
DX: E03.9 Hypothyroidism, unspecified (principal)

== ENCOUNTER → 2020-12-13 | Outpatient (REF) | payer MEDICARE, OTHER ==
[~2020-12-13] MED LIST changes: +GABA-282 PO; -GABA-843 PO
[2020-12-13 12:57] LABS: BASO % 0.5 % (0.0-1.0); EOS # 0.1 10^3/uL (0.0-0.5); EOS % 1.7 % (0.0-3.0); HEMOGLOBIN 12.3 g/dl (12.0-15.5); LYMPH # 2.4 10^3/uL (1.5-5.0); LYMPH % 32.4 % (24.0-44.0); MEAN CORPUSCULAR HEMOGLOBIN 28.1 pg (27.0-33.0); MEAN CORPUSCULAR HGB CONC 31.5 g/dl (32.0-36.5); MONO # 0.5 10^3/uL (0.0-0.8); MONO % 7.2 % (0.0-5.0); NEUTROPHILS # 4.3 10^3/uL (1.5-8.5); NEUTROPHILS % 58.1 % (36.0-66.0); PLATELET COUNT, AUTOMATED 317 10^3/uL (150-450); RED BLOOD COUNT 4.38 10^6/uL (4.00-5.40); WHITE BLOOD COUNT 7.5 10^3/uL (4.0-10.0)
[2020-12-13 15:26] LABS: BLOOD UREA NITROGEN 12 MG/DL (7-18); CREATININE FOR GFR 1.08 MG/DL (0.55-1.30); GLUCOSE, FASTING 123 MG/DL (70-100)
[2020-12-13 15:27] LABS: ALBUMIN 3.8 GM/DL (3.2-5.2); ALT/SGPT 20 U/L (12-78); BILIRUBIN,TOTAL 0.2 MG/DL (0.2-1.0); CALCIUM LEVEL 9.1 MG/DL (8.5-10.1); CARBON DIOXIDE LEVEL 26 MEQ/L (21-32); CHLORIDE LEVEL 105 MEQ/L (98-107); CHOLESTEROL LEVEL 183 MG/DL (<200); CHOLESTEROL RISK RATIO 4.692 (<5); FREE T4 0.86 NG/DL (0.76-1.46); GLOMERULAR FILTRATION RATE 55.9 (>51); HDL CHOLESTEROL 39 MG/DL (>40); LDL CHOLESTEROL 84 MG/DL (<100); NON-HDL-C 144 MG/DL; POTASSIUM SERUM 4.2 MEQ/L (3.5-5.1); SODIUM LEVEL 137 MEQ/L (136-145); TOTAL 25(OH) VITAMIN D 13.6 NG/ML (30.0-100.0); TOTAL PROTEIN 7.4 GM/DL (6.4-8.2); TRIGLYCERIDES LEVEL 301 MG/DL (<150)
[2020-12-13 15:56] LABS: HEMOGLOBIN A1c 5.8 %
[2020-12-13 16:03] LABS: HIV 1&2 SCREEN CENTAUR NEGATIVE (NEGATIVE)
== END ==
LOC: M LAB REF 11:41
PROVIDERS: ATTEND Nurse Practitioner Family
DX: E03.9 Hypothyroidism, unspecified (principal); Z20.6 Contact with and (suspected) exposure to human immunodeficiency virus [HIV]; F17.200 Nicotine dependence, unspecified, uncomplicated; Z79.899 Other long term (current) drug therapy

== ENCOUNTER → 2021-03-15 | Outpatient (REF) | payer MEDICARE, OTHER ==
[2021-03-15 18:19] LABS: BASO # 0.1 10^3/uL (0.0-0.2); BASO % 0.6 % (0.0-1.0); EOS # 0.2 10^3/uL (0.0-0.5); EOS % 1.9 % (0.0-3.0); HEMATOCRIT 42.1 % (36.0-47.0); LYMPH # 2.6 10^3/uL (1.5-5.0); LYMPH % 31.5 % (24.0-44.0); MEAN CORPUSCULAR HEMOGLOBIN 28.3 pg (27.0-33.0); MEAN CORPUSCULAR HGB CONC 30.9 g/dl (32.0-36.5); MEAN CORPUSCULAR VOLUME 91.7 fl (80.0-96.0); MONO # 0.5 10^3/uL (0.0-0.8); MONO % 5.6 % (2.0-8.0); NEUTROPHILS % 60.2 % (36.0-66.0); PLATELET COUNT, AUTOMATED 384 10^3/uL (150-450); RED BLOOD COUNT 4.59 10^6/uL (4.00-5.40); WHITE BLOOD COUNT 8.4 10^3/uL (4.0-10.0)
[2021-03-15 21:31] LABS: ALBUMIN 3.9 GM/DL (3.2-5.2); ALT/SGPT 24 U/L (12-78); BILIRUBIN,TOTAL 0.3 MG/DL (0.2-1.0); BLOOD UREA NITROGEN 7 MG/DL (7-18); CALCIUM LEVEL 9.8 MG/DL (8.5-10.1); CARBON DIOXIDE LEVEL 27 MEQ/L (21-32); CHLORIDE LEVEL 103 MEQ/L (98-107); CHOLESTEROL LEVEL 170 MG/DL (<200); CHOLESTEROL RISK RATIO 3.617 (<5); GLOMERULAR FILTRATION RATE > 60.0 (>51); GLUCOSE, FASTING 119 MG/DL (70-100); HDL CHOLESTEROL 47 MG/DL (>40); LDL CHOLESTEROL 73 MG/DL (<100); NON-HDL-C 123 MG/DL; POTASSIUM SERUM 4.1 MEQ/L (3.5-5.1); SODIUM LEVEL 138 MEQ/L (136-145); TOTAL PROTEIN 7.4 GM/DL (6.4-8.2); TRIGLYCERIDES LEVEL 249 MG/DL (<150)
[2021-03-16 01:44] LABS: HEMOGLOBIN A1c 6.4 %
[2021-03-16 13:38] LABS: TOTAL 25(OH) VITAMIN D 40.8 NG/ML (30.0-100.0)
[2021-03-16 14:17] LABS: HIV 1&2 SCREEN CENTAUR NEGATIVE (NEGATIVE)
== END ==
LOC: M LAB REF 16:48
PROVIDERS: ATTEND Nurse Practitioner Family
DX: E66.9 Obesity, unspecified (principal); E55.9 Vitamin D deficiency, unspecified; E03.9 Hypothyroidism, unspecified; R73.03 Prediabetes; Z51.81 Encounter for therapeutic drug level monitoring

== ENCOUNTER 2021-03-25 13:05 | Emergency (ER) | payer OTHER, MEDICARE ==
[~2021-03-25] VITALS: Ht 162.6 cm; Wt 76.9 kg
[2021-03-25] MEDS ORDERED: DULO1CAP6 PO (13:17)
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
[2021-03-25 14:45] VITALS: BP 171/88
== END 2021-03-25 14:58 | disposition home or self-care (01) ==
LOC: M ED 13:05
DX: S13.4XXA Sprain of ligaments of cervical spine, initial encounter (principal); S33.5XXA Sprain of ligaments of lumbar spine, initial encounter; V43.52XA Car driver injured in collision with other type car in traffic accident, initial encounter; Y92.9 Unspecified place or not applicable; Y93.9 Activity, unspecified; Y99.9 Unspecified external cause status; M47.812 Spondylosis without myelopathy or radiculopathy, cervical region; Z79.899 Other long term (current) drug therapy; Z88.6 Allergy status to analgesic agent; Z88.5 Allergy status to narcotic agent; Z91.040 Latex allergy status

== ENCOUNTER 2021-04-24 11:49 | Outpatient (RCR) | payer OTHER, MEDICARE ==
[~2021-04-24 11:49] MED LIST changes: +DULO1CAP6 PO; +EMTR1TAB16 PO; -TRUVTAB PO
== END 2021-05-01 ==
LOC: M PT 11:49
PROVIDERS: ATTEND Physician Assistant
DX: S13.4XXA Sprain of ligaments of cervical spine, initial encounter (principal); X58.XXXA Exposure to other specified factors, initial encounter; Y92.9 Unspecified place or not applicable; Y93.9 Activity, unspecified; Y99.9 Unspecified external cause status

== ENCOUNTER 2021-05-24 12:15 | Outpatient (RCR) | payer OTHER, MEDICARE | END 2021-05-31 | LOC: M PT 12:15 | PROVIDERS: ATTEND Physician Assistant | DX: S13.4XXA Sprain of ligaments of cervical spine, initial encounter (principal); X58.XXXA Exposure to other specified factors, initial encounter; Y92.9 Unspecified place or not applicable; Y93.9 Activity, unspecified; Y99.9 Unspecified external cause status ==

== ENCOUNTER 2021-06-22 13:00 | Outpatient (RCR) | payer OTHER, MEDICARE | END 2021-07-01 | LOC: M PT 13:00 | PROVIDERS: ATTEND Physician Assistant | DX: S13.4XXA Sprain of ligaments of cervical spine, initial encounter (principal); X58.XXXA Exposure to other specified factors, initial encounter; Y92.9 Unspecified place or not applicable ==

== ENCOUNTER → 2021-09-21 | Outpatient (CLI) | payer MEDICARE ==
[2021-09-21 15:47] LABS: PLATELET COUNT, AUTOMATED 313 10^3/uL (150-450)
[2021-09-21 15:57] LABS: INR 0.88; PROTHROMBIN TIME 12.3 SECONDS (12.7-14.5)
[2021-09-21 15:58] LABS: PARTIAL THROMBOPLASTIN TIME 37.5 SECONDS (25.9-37.0)
== END ==
LOC: M LAB 14:42
PROVIDERS: ATTEND Physical Medicine & Rehabilitation
DX: Z01.812 Encounter for preprocedural laboratory examination (principal)

== ENCOUNTER → 2021-10-12 | Outpatient (CLI) | payer MEDICARE ==
--- NOTE | 2021-10-12 14:54 | REPMRS ---
Patient History The patient states she had a clinical breast exam in October 2021. Patient is postmenopausal. Family history of prostate cancer in paternal uncle. 9 benign core biopsies of both breasts, 2004. Benign core biopsy of the right breast, 1999. Tomosynthesis is performed. Volpara breast density is b. [facility] lifetime risk of breast cancer 6.9%. Patient states no breast complaints today. Patient has signed MRS History Sheet. Digital Woman Screen Mammo: October 12, 2021 - Exam #: [id number] Bilateral CC and MLO view(s) were taken. Technologist: Rosemarie Ayoub, Technologist Prior study comparison: June 21, 2020, bilateral digital woman screen mammo performed at [facility]. March 25, 2018, digital woman screen mammo performed at [facility]. FINDINGS: There are scattered fibroglandular densities. There has been no change in the appearance of the mammogram from the prior studies. There is a mild amount of residual fibroglandular tissue which is fairly symmetric. There is no interval development of dominant mass, architectural distortion, or clustered microcalcification suggestive of malignancy. Assessment: BI-RADS/ACR category 1 mammogram. Negative Mammogram. Recommendation Routine screening mammogram in 1 year (for women over age 40). This mammogram was interpreted with the aid of an FDA-approved computer-aided dectection system. Electronically Signed By: Ochoa Alvarado MD 10/12/21 4023
== END ==
LOC: M WHC 13:28
PROVIDERS: ATTEND Nurse Practitioner Women's Health
DX: Z01.419 Encounter for gynecological examination (general) (routine) without abnormal findings (principal); Z12.31 Encounter for screening mammogram for malignant neoplasm of breast; Z78.0 Asymptomatic menopausal state; Z86.018 Personal history of other benign neoplasm
CPT/HCPCS: 77063; 77067; G0101

== ENCOUNTER → 2021-11-03 | Outpatient (CLI) | payer OTHER ==
--- NOTE | 2021-11-03 15:54 | REP ---
INDICATION: SMOKER. COMPARISON: None. TECHNIQUE: Axial noncontrast images from the thoracic inlet to the upper abdomen using low-dose lung screening technique (LDCT). As per the protocol only lung window images were sent to the read station for interpretation. FINDINGS: There are no abnormal nodules, masses, or opacities. Grossly, the mediastinum and pulmonary terri are within normal limits. Grossly, the imaged upper abdomen and imaged osseous structures are within normal limits. IMPRESSION: Lung rads category 1-low-dose screening CT of the lungs. Follow-up as per the revised Fleischner society criteria. <Electronically signed by Yaakov Zepeda > 11/03/21 [id number]
== END ==
LOC: M RAD 15:10
PROVIDERS: ATTEND Nurse Practitioner Family
DX: Z12.2 Encounter for screening for malignant neoplasm of respiratory organs (principal); F17.200 Nicotine dependence, unspecified, uncomplicated

== ENCOUNTER → 2021-11-14 | Outpatient (CLI) | payer MEDICARE, OTHER | LOC: M RAD 18:06 | PROVIDERS: ATTEND Physician Assistant | DX: M47.816 Spondylosis without myelopathy or radiculopathy, lumbar region (principal); M51.26 Other intervertebral disc displacement, lumbar region ==

== ENCOUNTER → 2022-07-24 | Outpatient (CLI) | payer MEDICARE, OTHER ==
[~2022-07-24] MED LIST changes: +GASTROGRAFIN SOLUTION 30ML (Q9963) As Ordered ONE; +ISOVUE-370 76% 100ML VIAL As Ordered ONE
== END ==
LOC: M RAD 16:52
PROVIDERS: ATTEND Family Medicine Addiction Medicine
DX: M25.562 Pain in left knee (principal); M25.762 Osteophyte, left knee; M17.12 Unilateral primary osteoarthritis, left knee

== ENCOUNTER → 2022-10-31 | Outpatient (REF) | payer OTHER ==
[~2022-10-31] MED LIST changes: -GASTROGRAFIN SOLUTION 30ML (Q9963) As Ordered ONE; -ISOVUE-370 76% 100ML VIAL As Ordered ONE
[2022-10-31 18:45] LABS: ALKALINE PHOSPHATASE 76 U/L (46-116); ALT/SGPT 15 U/L (7.0-40); AST/SGOT 14 U/L (<34); BILIRUBIN,TOTAL 0.2 MG/DL (0.3-1.2); BLOOD UREA NITROGEN 15 MG/DL (9-23); CALCIUM LEVEL 9.2 MG/DL (8.5-10.1); CARBON DIOXIDE LEVEL 25 MMOL/L (20-31); CHLORIDE LEVEL 104 MMOL/L (98-107); CREATININE FOR GFR 0.92 MG/DL (0.55-1.30); GLOMERULAR FILTRATION RATE > 60.0 (>51); GLUCOSE, FASTING 108 MG/DL (60-100); POTASSIUM SERUM 4.2 MMOL/L (3.5-5.1); SODIUM LEVEL 137 MMOL/L (136-145); THYROID STIMULATING HORMONE 2.855 uIU/ML (0.55-4.78)
[2022-10-31 20:31] LABS: CREATININE, URINE 135.5 MG/DL
[2022-10-31 20:33] LABS: MAU/CREAT RATIO 9.5 MCG/MG (0.0-30.0)
[2022-10-31 22:56] LABS: HEMOGLOBIN A1c 5.4 % (4.0-6.0)
== END ==
LOC: M LAB REF 16:33
PROVIDERS: ATTEND Family Medicine Addiction Medicine
DX: R73.03 Prediabetes (principal); E66.9 Obesity, unspecified; E55.9 Vitamin D deficiency, unspecified; E03.9 Hypothyroidism, unspecified; Z51.81 Encounter for therapeutic drug level monitoring; Z79.899 Other long term (current) drug therapy

== ENCOUNTER → 2023-05-27 | Outpatient (REF) | payer OTHER, MEDICAID ==
[2023-05-27 19:33] LABS: BASO % 0.3 % (0.0-1.0); EOS # 0.1 10^3/uL (0.0-0.5); EOS % 1.5 % (0.0-3.0); HEMATOCRIT 41.3 % (36.0-47.0); HEMOGLOBIN 13.7 g/dl (12.0-15.5); LYMPH # 1.6 10^3/uL (1.5-5.0); LYMPH % 24.5 % (24.0-44.0); MEAN CORPUSCULAR HEMOGLOBIN 30.6 pg (27.0-33.0); MEAN CORPUSCULAR HGB CONC 33.2 g/dl (32.0-36.5); MEAN CORPUSCULAR VOLUME 92.2 fl (80.0-96.0); MONO # 0.5 10^3/uL (0.0-0.8); MONO % 7.7 % (2.0-8.0); NEUTROPHILS # 4.3 10^3/uL (1.5-8.5); NEUTROPHILS % 65.7 % (36.0-66.0); PLATELET COUNT, AUTOMATED 349 10^3/uL (150-450); RED BLOOD COUNT 4.48 10^6/uL (4.00-5.40); WHITE BLOOD COUNT 6.5 10^3/uL (4.0-10.0)
[2023-05-27 19:34] LABS: HEMOGLOBIN A1c 5.4 % (4.0-6.0)
[2023-05-27 20:00] LABS: ERYTHROCYTE SEDIMENTATION RATE 38 mm/hr (0-30)
[2023-05-27 20:14] LABS: ALBUMIN 4.1 G/DL (3.2-5.2); ALKALINE PHOSPHATASE 89 U/L (46-116); ALT/SGPT 13 U/L (7.0-40); AST/SGOT 10 U/L (<34); BILIRUBIN,TOTAL 0.4 MG/DL (0.3-1.2); BLOOD UREA NITROGEN 8 MG/DL (9-23); CALCIUM LEVEL 9.2 MG/DL (8.5-10.1); CARBON DIOXIDE LEVEL 24 MMOL/L (20-31); CHLORIDE LEVEL 106 MMOL/L (98-107); CHOLESTEROL LEVEL 170 MG/DL (<200); CHOLESTEROL RISK RATIO 4.68 (<5); GLOMERULAR FILTRATION RATE > 60.0 (>51); GLUCOSE, FASTING 117 MG/DL (60-100); HDL CHOLESTEROL 36.3 MG/DL (>40); LDL CHOLESTEROL 77.1 MG/DL (<100); NON-HDL-C 133.7 MG/DL; POTASSIUM SERUM 4.1 MMOL/L (3.5-5.1); SODIUM LEVEL 137 MMOL/L (136-145); TOTAL PROTEIN 7.1 G/DL (5.7-8.2); TRIGLYCERIDES LEVEL 283 MG/DL (<150)
[2023-05-27 20:16] LABS: THYROID STIMULATING HORMONE 0.314 uIU/ML (0.55-4.78)
[2023-05-27 21:39] LABS: RHEUMATOID FACTOR QUANT 10.9 IU/ML (<14)
[2023-05-30 01:08] LABS: ANA (HEP2) Positive (.); CYCLIC CITRULLINATED PEPTIDE > 250 units (0-19); SSA SJOGRENS A 0.2 AI (0.0-0.9); SSB SJOGRENS B <0.2 AI (0.0-0.9)
== END ==
LOC: M LAB REF 12:38
PROVIDERS: ATTEND Family Medicine Addiction Medicine
DX: Z51.81 Encounter for therapeutic drug level monitoring (principal); M25.562 Pain in left knee; E66.9 Obesity, unspecified; E03.9 Hypothyroidism, unspecified; R73.03 Prediabetes; Z79.899 Other long term (current) drug therapy

== ENCOUNTER → 2023-07-05 | Outpatient (REF) | payer OTHER, MEDICAID ==
[2023-07-05 17:07] LABS: FREE T4 0.69 NG/DL (0.89-1.76); THYROID STIMULATING HORMONE 17.077 uIU/ML (0.55-4.78)
== END ==
LOC: M LAB REF 16:17
PROVIDERS: ATTEND Family Medicine Addiction Medicine
DX: E03.9 Hypothyroidism, unspecified (principal)

== ENCOUNTER → 2023-07-30 | Outpatient (REF) | payer OTHER, MEDICAID | LOC: M SFHCWAGY 13:15 | PROVIDERS: ATTEND Nurse Practitioner Family | DX: Z12.4 Encounter for screening for malignant neoplasm of cervix (principal); R30.0 Dysuria | CPT/HCPCS: 87086; 87624; G0123 ==

== ENCOUNTER → 2023-07-30 | Outpatient (CLI) | payer OTHER | LOC: M WHC 09:41 | PROVIDERS: ATTEND Nurse Practitioner Family | DX: Z12.31 Encounter for screening mammogram for malignant neoplasm of breast (principal) ==

== ENCOUNTER → 2023-08-13 | Outpatient (REF) | payer OTHER, MEDICAID | LOC: M SFHCWAGY 17:27 | PROVIDERS: ATTEND Nurse Practitioner Family | DX: N76.89 Other specified inflammation of vagina and vulva (principal) ==

== ENCOUNTER → 2023-10-10 | Outpatient (REF) | payer OTHER, MEDICAID ==
[2023-10-10 17:40] LABS: ALBUMIN 4.2 G/DL (3.2-5.2); ALKALINE PHOSPHATASE 87 U/L (46-116); ALT/SGPT 11 U/L (7.0-40); AST/SGOT 10 U/L (<34); BILIRUBIN,TOTAL 0.3 MG/DL (0.3-1.2); BLOOD UREA NITROGEN 12 MG/DL (9-23); CALCIUM LEVEL 9.4 MG/DL (8.5-10.1); CARBON DIOXIDE LEVEL 25 MMOL/L (20-31); CHLORIDE LEVEL 101 MMOL/L (98-107); CHOLESTEROL LEVEL 182 MG/DL (<200); CHOLESTEROL RISK RATIO 3.79 (<5); CREATININE FOR GFR 0.78 MG/DL (0.55-1.30); GLOMERULAR FILTRATION RATE > 60.0 (>51); GLUCOSE, FASTING 98 MG/DL (60-100); HDL CHOLESTEROL 47.9 MG/DL (>40); LDL CHOLESTEROL 94.5 MG/DL (<100); NON-HDL-C 134.1 MG/DL; POTASSIUM SERUM 4.9 MMOL/L (3.5-5.1); SODIUM LEVEL 136 MMOL/L (136-145); THYROID STIMULATING HORMONE 0.462 uIU/ML (0.55-4.78); TOTAL PROTEIN 7.2 G/DL (5.7-8.2); TRIGLYCERIDES LEVEL 198 MG/DL (<150)
== END ==
LOC: M LAB REF 16:32
PROVIDERS: ATTEND Family Medicine Addiction Medicine
DX: E03.9 Hypothyroidism, unspecified (principal)

== ENCOUNTER 2024-02-26 13:16 | Outpatient (RCR) | payer MEDICARE, MEDICAID | END 2024-03-01 | LOC: M PT 13:16 | PROVIDERS: ATTEND Orthopaedic Surgery | DX: M54.12 Radiculopathy, cervical region (principal) ==

== ENCOUNTER 2024-03-24 13:30 | Outpatient (RCR) | payer MEDICARE, MEDICAID | END 2024-03-31 | LOC: M PT 13:30 | PROVIDERS: ATTEND Orthopaedic Surgery | DX: M54.12 Radiculopathy, cervical region (principal) ==

== ENCOUNTER → 2024-03-25 | Outpatient (REF) | payer MEDICARE ==
[2024-03-25 17:20] LABS: BASO % 0.6 % (0.0-1.0); EOS # 0.1 10^3/uL (0.0-0.5); EOS % 1.2 % (0.0-3.0); HEMOGLOBIN 14.3 g/dl (12.0-15.5); LYMPH # 1.8 10^3/uL (1.5-5.0); LYMPH % 26.7 % (24.0-44.0); MEAN CORPUSCULAR HEMOGLOBIN 31.4 pg (27.0-33.0); MEAN CORPUSCULAR HGB CONC 33.3 g/dl (32.0-36.5); MEAN CORPUSCULAR VOLUME 94.5 fl (80.0-96.0); MONO # 0.3 10^3/uL (0.0-0.8); MONO % 4.8 % (2.0-8.0); NEUTROPHILS # 4.5 10^3/uL (1.5-8.5); NEUTROPHILS % 66.4 % (36.0-66.0); PLATELET COUNT, AUTOMATED 353 10^3/uL (150-450); RED BLOOD COUNT 4.55 10^6/uL (4.00-5.40); WHITE BLOOD COUNT 6.8 10^3/uL (4.0-10.0)
[2024-03-25 17:29] LABS: C REACTIVE PROTEIN QUANTITATIV < 0.40 MG/DL (<1.0)
[2024-03-25 17:30] LABS: COMPLEMENT C3 132.1 MG/DL (90.0-170.0)
[2024-03-25 17:31] LABS: ALBUMIN 4.6 G/DL (3.2-5.2); ALKALINE PHOSPHATASE 88 U/L (46-116); ALT/SGPT 23 U/L (7.0-40); AST/SGOT 17 U/L (<34); BILIRUBIN,TOTAL 0.4 MG/DL (0.3-1.2); BLOOD UREA NITROGEN 11 MG/DL (9-23); CARBON DIOXIDE LEVEL 30 MMOL/L (20-31); CHLORIDE LEVEL 101 MMOL/L (98-107); COMPLEMENT C4 34.6 MG/DL (12-36); CREATININE FOR GFR 0.84 MG/DL (0.55-1.30); GLOMERULAR FILTRATION RATE > 60.0 (>51); GLUCOSE, FASTING 82 MG/DL (60-100); IMMUNOGLOBULIN G 1099 MG/DL (650-1600); POTASSIUM SERUM 4.3 MMOL/L (3.5-5.1); SODIUM LEVEL 137 MMOL/L (136-145); TOTAL PROTEIN 7.6 G/DL (5.7-8.2)
[2024-03-25 17:42] LABS: ERYTHROCYTE SEDIMENTATION RATE 38 mm/hr (0-30)
[2024-03-25 17:48] LABS: TOTAL PROTEIN,RANDOM URINE 8.7 MG/DL (0.0-14.0)
[2024-03-25 17:49] LABS: APPEARANCE, URINE CLEAR (CLEAR); BACTERIA, URINE AUTO NEGATIVE (NEGATIVE); BILIRUBIN, URINE AUTO NEGATIVE (NEGATIVE); BLOOD, URINE BLOOD NEGATIVE (NEGATIVE); COLOR, URINE YELLOW (YELLOW); GLUCOSE, URINE (UA) AUTO NEGATIVE (NEGATIVE); KETONE, URINE AUTO NEGATIVE (NEGATIVE); LEUKOCYTE ESTERASE, URINE AUTO NEGATIVE (NEGATIVE); NITRITE, URINE AUTO NEGATIVE (NEGATIVE); PROTEIN, URINE AUTO NEGATIVE (NEGATIVE); RBC, URINE AUTO 0 /HPF (0-3); SPECIFIC GRAVITY URINE AUTO 1.008 (1.002-1.035); SQUAMOUS EPITHELIAL CELL UR AU 1 /HPF (0-6); UROBILINOGEN, URINE AUTO 0.2 mg/dL (0.0-2.0); WBC, URINE AUTO 0 /HPF (0-3)
== END ==
LOC: M SFHCRHEU 14:43
PROVIDERS: ATTEND Internal Medicine Rheumatology
DX: R76.8 Other specified abnormal immunological findings in serum (principal); R52 Pain, unspecified; H04.123 Dry eye syndrome of bilateral lacrimal glands; Z72.0 Tobacco use; R63.4 Abnormal weight loss

== ENCOUNTER → 2024-04-02 | Outpatient (CLI) | payer MEDICARE, MEDICAID | LOC: M RAD 12:22 | PROVIDERS: ATTEND Internal Medicine Rheumatology | DX: R76.8 Other specified abnormal immunological findings in serum (principal); R52 Pain, unspecified; H04.123 Dry eye syndrome of bilateral lacrimal glands; Z72.0 Tobacco use; R63.4 Abnormal weight loss; R93.6 Abnormal findings on diagnostic imaging of limbs; M46.1 Sacroiliitis, not elsewhere classified ==

== ENCOUNTER 2024-04-09 13:30 | Outpatient (RCR) | payer MEDICARE, MEDICAID | END 2024-05-01 | LOC: M PT 13:30 | PROVIDERS: ATTEND Orthopaedic Surgery | DX: M54.12 Radiculopathy, cervical region (principal) ==

== ENCOUNTER → 2024-04-15 | Outpatient (REF) | payer MEDICARE ==
[2024-04-15 18:43] LABS: ALKALINE PHOSPHATASE 78 U/L (46-116); ALT/SGPT 12 U/L (7.0-40); AST/SGOT 15 U/L (<34); BILIRUBIN,TOTAL 0.5 MG/DL (0.3-1.2); BLOOD UREA NITROGEN 10 MG/DL (9-23); CALCIUM LEVEL 9.3 MG/DL (8.5-10.1); CARBON DIOXIDE LEVEL 28 MMOL/L (20-31); CHLORIDE LEVEL 105 MMOL/L (98-107); CHOLESTEROL LEVEL 153 MG/DL (<200); CHOLESTEROL RISK RATIO 3.75 (<5); GLOMERULAR FILTRATION RATE > 60.0 (>51); GLUCOSE, FASTING 82 MG/DL (60-100); HDL CHOLESTEROL 40.8 MG/DL (>40); NON-HDL-C 112.2 MG/DL; POTASSIUM SERUM 4.5 MMOL/L (3.5-5.1); SODIUM LEVEL 139 MMOL/L (136-145); TOTAL PROTEIN 6.7 G/DL (5.7-8.2); TRIGLYCERIDES LEVEL 111 MG/DL (<150)
[2024-04-15 18:46] LABS: THYROID STIMULATING HORMONE 0.369 uIU/ML (0.55-4.78)
[2024-04-15 20:38] LABS: HEMOGLOBIN A1c 5.3 % (4.0-6.0)
== END ==
LOC: M LAB REF 16:44
PROVIDERS: ATTEND Family Medicine Addiction Medicine
DX: E66.9 Obesity, unspecified (principal); E03.9 Hypothyroidism, unspecified; Z51.81 Encounter for therapeutic drug level monitoring; R73.03 Prediabetes

== ENCOUNTER → 2024-06-08 | Outpatient (REF) | payer MEDICARE ==
[2024-06-08 18:28] LABS: BASO # 0.1 10^3/uL (0.0-0.2); BASO % 0.8 % (0.0-1.0); EOS # 0.1 10^3/uL (0.0-0.5); EOS % 1.7 % (0.0-3.0); HEMATOCRIT 44.2 % (36.0-47.0); HEMOGLOBIN 14.2 g/dl (12.0-15.5); LYMPH # 1.3 10^3/uL (1.5-5.0); LYMPH % 17.8 % (24.0-44.0); MEAN CORPUSCULAR HGB CONC 32.1 g/dl (32.0-36.5); MEAN CORPUSCULAR VOLUME 99.5 fl (80.0-96.0); MONO # 0.5 10^3/uL (0.0-0.8); MONO % 6.4 % (2.0-8.0); NEUTROPHILS # 5.5 10^3/uL (1.5-8.5); NEUTROPHILS % 73.2 % (36.0-66.0); PLATELET COUNT, AUTOMATED 338 10^3/uL (150-450); RED BLOOD COUNT 4.44 10^6/uL (4.00-5.40); WHITE BLOOD COUNT 7.5 10^3/uL (4.0-10.0)
[2024-06-08 18:36] LABS: ERYTHROCYTE SEDIMENTATION RATE 25 mm/hr (0-30)
[2024-06-08 18:50] LABS: C REACTIVE PROTEIN QUANTITATIV < 0.40 MG/DL (<1.0)
[2024-06-08 18:52] LABS: ALBUMIN 4.5 G/DL (3.2-5.2); ALKALINE PHOSPHATASE 88 U/L (46-116); ALT/SGPT 14 U/L (7.0-40); AST/SGOT 11 U/L (<34); BILIRUBIN,TOTAL 0.5 MG/DL (0.3-1.2); BLOOD UREA NITROGEN 12 MG/DL (9-23); CALCIUM LEVEL 9.9 MG/DL (8.3-10.6); CARBON DIOXIDE LEVEL 28 MMOL/L (20-31); CHLORIDE LEVEL 108 MMOL/L (98-107); CREATININE FOR GFR 0.91 MG/DL (0.55-1.30); GLOMERULAR FILTRATION RATE > 60.0 (>45); GLUCOSE, FASTING 111 MG/DL (74-106); SODIUM LEVEL 146 MMOL/L (136-145); TOTAL PROTEIN 7.6 G/DL (5.7-8.2)
== END ==
LOC: M SFHCRHEU 14:06
PROVIDERS: ATTEND Internal Medicine Rheumatology
DX: R76.8 Other specified abnormal immunological findings in serum (principal); R52 Pain, unspecified; H04.123 Dry eye syndrome of bilateral lacrimal glands; R63.4 Abnormal weight loss; Z72.0 Tobacco use

== ENCOUNTER → 2024-11-11 | Outpatient (REF) | payer MEDICARE ==
[~2024-11-11] MED LIST changes: +GABA-1172 PO; -GABA-282 PO
[2024-11-11 13:02] LABS: BASO # 0.1 10^3/uL (0.0-0.2); BASO % 0.7 % (0.0-1.0); EOS # 0.1 10^3/uL (0.0-0.5); EOS % 1.4 % (0.0-3.0); HEMATOCRIT 41.9 % (36.0-47.0); LYMPH # 1.6 10^3/uL (1.5-5.0); LYMPH % 23.2 % (24.0-44.0); MEAN CORPUSCULAR HEMOGLOBIN 31.4 pg (27.0-33.0); MEAN CORPUSCULAR HGB CONC 33.4 g/dl (32.0-36.5); MEAN CORPUSCULAR VOLUME 93.9 fl (80.0-96.0); MONO # 0.5 10^3/uL (0.0-0.8); MONO % 6.4 % (2.0-8.0); NEUTROPHILS # 4.8 10^3/uL (1.5-8.5); NEUTROPHILS % 68.2 % (36.0-66.0); PLATELET COUNT, AUTOMATED 318 10^3/uL (150-450); RED BLOOD COUNT 4.46 10^6/uL (4.00-5.40)
[2024-11-11 13:08] LABS: ERYTHROCYTE SEDIMENTATION RATE 19 mm/hr (0-30)
[2024-11-11 13:26] LABS: C REACTIVE PROTEIN QUANTITATIV < 0.50 MG/DL (<1.0)
[2024-11-11 13:27] LABS: ALBUMIN 4.1 G/DL (3.2-5.2); ALKALINE PHOSPHATASE 78 U/L (35-104); ALT/SGPT 13 U/L (7.0-40); AST/SGOT < 8 U/L (<34); BILIRUBIN,TOTAL 0.5 MG/DL (0.3-1.2); BLOOD UREA NITROGEN 12 MG/DL (9-23); CALCIUM LEVEL 9.9 MG/DL (8.3-10.6); CARBON DIOXIDE LEVEL 30 MMOL/L (20-31); CHLORIDE LEVEL 105 MMOL/L (98-107); CREATININE FOR GFR 0.81 MG/DL (0.55-1.30); GLOMERULAR FILTRATION RATE > 60.0 (>45); GLUCOSE, FASTING 96 MG/DL (74-106); POTASSIUM SERUM 4.2 MMOL/L (3.5-5.1); SODIUM LEVEL 141 MMOL/L (136-145); TOTAL PROTEIN 7.3 G/DL (5.7-8.2)
[2024-11-11 14:10] LABS: HEPATITIS B SURFACE ANTIGEN NEGATIVE (NEGATIVE)
[2024-11-11 14:31] LABS: HEPATITIS C VIRUS ABY INDEX < 0.02 INDEX (<0.8)
[2024-11-13 12:27] LABS: QuantiFERON-TB Gold Plus NEGATIVE (NEGATIVE)
== END ==
LOC: M SFHCRHEU 11:26
PROVIDERS: ATTEND Internal Medicine Rheumatology
DX: M05.9 Rheumatoid arthritis with rheumatoid factor, unspecified (principal); R76.8 Other specified abnormal immunological findings in serum; H04.123 Dry eye syndrome of bilateral lacrimal glands; Z72.0 Tobacco use; R63.4 Abnormal weight loss; M47.818 Spondylosis without myelopathy or radiculopathy, sacral and sacrococcygeal region; Z11.59 Encounter for screening for other viral diseases

== ENCOUNTER → 2024-12-15 | Outpatient (REF) | payer MEDICARE, MEDICAID ==
[2024-12-15 14:24] LABS: HEMOGLOBIN A1c 5.5 % (4.0-6.0)
[2024-12-15 14:28] LABS: ALBUMIN 3.8 G/DL (3.2-5.2); ALKALINE PHOSPHATASE 70 U/L (35-104); ALT/SGPT 12 U/L (7.0-40); AST/SGOT 11 U/L (<34); BILIRUBIN,TOTAL 0.3 MG/DL (0.3-1.2); BLOOD UREA NITROGEN 14 MG/DL (9-23); CALCIUM LEVEL 9.7 MG/DL (8.3-10.6); CARBON DIOXIDE LEVEL 23 MMOL/L (20-31); CHLORIDE LEVEL 107 MMOL/L (98-107); CHOLESTEROL LEVEL 162 MG/DL (<200); CHOLESTEROL RISK RATIO 3.97 (<5); CREATININE FOR GFR 0.81 MG/DL (0.55-1.30); GLOMERULAR FILTRATION RATE > 60.0 (>45); GLUCOSE, FASTING 94 MG/DL (74-106); HDL CHOLESTEROL 40.8 MG/DL (>40); NON-HDL-C 121.2 MG/DL; POTASSIUM SERUM 4.4 MMOL/L (3.5-5.1); SODIUM LEVEL 139 MMOL/L (136-145); TOTAL PROTEIN 7.2 G/DL (5.7-8.2); TRIGLYCERIDES LEVEL 171 MG/DL (<150)
[2024-12-15 14:29] LABS: THYROID STIMULATING HORMONE 0.783 uIU/ML (0.55-4.78)
== END ==
LOC: M LAB REF 12:19
PROVIDERS: ATTEND Family Medicine Addiction Medicine
DX: R73.03 Prediabetes (principal); E55.9 Vitamin D deficiency, unspecified; E66.9 Obesity, unspecified; E03.9 Hypothyroidism, unspecified; Z51.81 Encounter for therapeutic drug level monitoring

== ENCOUNTER → 2025-02-05 | Outpatient (CLI) | payer MEDICARE, MEDICAID | LOC: M RAD 14:22 | PROVIDERS: ATTEND Chiropractor | DX: M99.03 Segmental and somatic dysfunction of lumbar region (principal); M54.41 Lumbago with sciatica, right side; M99.01 Segmental and somatic dysfunction of cervical region; M50.33 Other cervical disc degeneration, cervicothoracic region; M99.02 Segmental and somatic dysfunction of thoracic region; M51.34 Other intervertebral disc degeneration, thoracic region; M99.05 Segmental and somatic dysfunction of pelvic region; M62.830 Muscle spasm of back; H04.123 Dry eye syndrome of bilateral lacrimal glands; R76.0 Raised antibody titer; R63.4 Abnormal weight loss; Z72.0 Tobacco use ==

== ENCOUNTER → 2025-02-05 | Outpatient (CLI) | payer MEDICARE, MEDICAID ==
[2025-02-05 16:06] LABS: BASO # 0.1 10^3/uL (0.0-0.2); BASO % 0.8 % (0.0-1.0); EOS # 0.1 10^3/uL (0.0-0.5); EOS % 1.7 % (0.0-3.0); HEMATOCRIT 42.8 % (36.0-47.0); LYMPH # 1.9 10^3/uL (1.5-5.0); LYMPH % 31.8 % (24.0-44.0); MEAN CORPUSCULAR HEMOGLOBIN 31.3 pg (27.0-33.0); MEAN CORPUSCULAR HGB CONC 32.7 g/dl (32.0-36.5); MEAN CORPUSCULAR VOLUME 95.7 fl (80.0-96.0); MONO # 0.5 10^3/uL (0.0-0.8); MONO % 7.6 % (2.0-8.0); NEUTROPHILS # 3.4 10^3/uL (1.5-8.5); NEUTROPHILS % 57.9 % (36.0-66.0); PLATELET COUNT, AUTOMATED 313 10^3/uL (150-450); RED BLOOD COUNT 4.47 10^6/uL (4.00-5.40); WHITE BLOOD COUNT 5.9 10^3/uL (4.0-10.0)
[2025-02-05 16:17] LABS: ERYTHROCYTE SEDIMENTATION RATE 15 mm/hr (0-30)
[2025-02-05 16:33] LABS: ALBUMIN 4.2 G/DL (3.2-5.2); ALKALINE PHOSPHATASE 79 U/L (35-104); ALT/SGPT 20 U/L (7.0-40); AST/SGOT 14 U/L (<34); BILIRUBIN,TOTAL 0.6 MG/DL (0.3-1.2); BLOOD UREA NITROGEN 9 MG/DL (9-23); C REACTIVE PROTEIN QUANTITATIV < 0.50 MG/DL (<1.0); CALCIUM LEVEL 9.6 MG/DL (8.3-10.6); CARBON DIOXIDE LEVEL 29 MMOL/L (20-31); CHLORIDE LEVEL 106 MMOL/L (98-107); CREATININE FOR GFR 0.78 MG/DL (0.55-1.30); GLOMERULAR FILTRATION RATE > 60.0 (>45); GLUCOSE, FASTING 109 MG/DL (74-106); POTASSIUM SERUM 4.7 MMOL/L (3.5-5.1); SODIUM LEVEL 141 MMOL/L (136-145); TOTAL PROTEIN 7.5 G/DL (5.7-8.2)
== END ==
LOC: M LAB 14:19
PROVIDERS: ATTEND Internal Medicine Rheumatology
DX: H04.123 Dry eye syndrome of bilateral lacrimal glands (principal); R76.8 Other specified abnormal immunological findings in serum; R63.4 Abnormal weight loss; Z72.0 Tobacco use

== ENCOUNTER → 2025-03-30 | Outpatient (CLI) | payer MEDICARE, MEDICAID | LOC: M WHC 10:50 | PROVIDERS: ATTEND Nurse Practitioner Family | DX: Z12.31 Encounter for screening mammogram for malignant neoplasm of breast (principal); Z13.820 Encounter for screening for osteoporosis; N95.1 Menopausal and female climacteric states; F17.219 Nicotine dependence, cigarettes, with unspecified nicotine-induced disorders; M85.851 Other specified disorders of bone density and structure, right thigh; M85.852 Other specified disorders of bone density and structure, left thigh; R92.323 Mammographic fibroglandular density, bilateral breasts ==

== ENCOUNTER → 2025-03-30 | Outpatient (REF) | payer MEDICARE, MEDICAID ==
[2025-04-01 16:12] LABS: HPV APTIMA Not Detected (Not Detected)
== END ==
LOC: M SFHCWAGY 12:59
PROVIDERS: ATTEND Nurse Practitioner Family
DX: Z12.4 Encounter for screening for malignant neoplasm of cervix (principal); Z11.51 Encounter for screening for human papillomavirus (HPV); R10.2 Pelvic and perineal pain
CPT/HCPCS: 87070; 87624; G0123

== ENCOUNTER → 2025-03-31 | Outpatient (CLI) | payer MEDICARE, MEDICAID | LOC: M RAD 14:54 | PROVIDERS: ATTEND Physician Assistant | DX: S60.942A Unspecified superficial injury of right middle finger, initial encounter (principal); Y93.9 Activity, unspecified; Y92.9 Unspecified place or not applicable ==

== ENCOUNTER → 2025-04-19 | Outpatient (CLI) | payer MEDICARE, MEDICAID | LOC: M WHC 11:15 | PROVIDERS: ATTEND Nurse Practitioner Family | DX: R10.2 Pelvic and perineal pain (principal); D25.9 Leiomyoma of uterus, unspecified ==

== ENCOUNTER 2025-06-14 15:20 | Emergency (ER) | payer MEDICARE, MEDICAID ==
[~2025-06-14] VITALS: Ht 162.6 cm; Wt 64.8 kg
[2025-06-14 15:32] VITALS: TEMP 98.7
[2025-06-14 18:55] VITALS: BP 162/80; O2SAT 99
[2025-06-14] MEDS ORDERED: AMOX875T2 PO (19:14)
[2025-06-14] MEDS: AUGMENTIN 875 MG TAB PO ONE (19:17)
[2025-06-14] MEDS: BOOSTRIX VACCINE (TETANUS/DIPHTH/ACEL. PERTUSSIS) 0.5 ML SYR IM ONE (19:18)
== END 2025-06-14 19:23 | disposition home or self-care (01) ==
LOC: M ED 15:20
DX: S61.233A Puncture wound without foreign body of left middle finger without damage to nail, initial encounter (principal); W54.0XXA Bitten by dog, initial encounter; I10 Essential (primary) hypertension; E03.9 Hypothyroidism, unspecified; G47.33 Obstructive sleep apnea (adult) (pediatric); Y92.009 Unspecified place in unspecified non-institutional (private) residence as the place of occurrence of the external cause; Y93.89 Activity, other specified; Y99.9 Unspecified external cause status; Z88.5 Allergy status to narcotic agent; Z88.6 Allergy status to analgesic agent; Z91.040 Latex allergy status; Z79.2 Long term (current) use of antibiotics; Z79.02 Long term (current) use of antithrombotics/antiplatelets; Z79.899 Other long term (current) drug therapy; Z23 Encounter for immunization

== ENCOUNTER → 2025-07-07 | Outpatient (CLI) | payer MEDICARE, MEDICAID ==
[~2025-07-07] MED LIST changes: +AMOX875T2 PO
[2025-07-07 15:16] LABS: BASO # 0.0 10^3/uL (0.0-0.2); BASO % 0.5 % (0.0-1.0); EOS # 0.1 10^3/uL (0.0-0.5); EOS % 1.2 % (0.0-3.0); LYMPH # 2.2 10^3/uL (1.5-5.0); LYMPH % 28.4 % (24.0-44.0); MONO # 0.5 10^3/uL (0.0-0.8); MONO % 6.1 % (2.0-8.0); NEUTROPHILS # 4.9 10^3/uL (1.5-8.5); NEUTROPHILS % 63.5 % (36.0-66.0); PLATELET COUNT, AUTOMATED 301 10^3/uL (150-450)
[2025-07-07 15:20] LABS: ERYTHROCYTE SEDIMENTATION RATE 20 mm/hr (0-30)
[2025-07-07 15:47] LABS: ALT/SGPT 15 U/L (7.0-40); AST/SGOT 15 U/L (<34); C REACTIVE PROTEIN QUANTITATIV < 0.50 MG/DL (<1.0); CALCIUM LEVEL 9.2 MG/DL (8.3-10.6); CARBON DIOXIDE LEVEL 27 MMOL/L (20-31); CHLORIDE LEVEL 105 MMOL/L (98-107); CREATININE FOR GFR 0.85 MG/DL (0.55-1.30); GLOMERULAR FILTRATION RATE 77.9 (>45); POTASSIUM SERUM 3.8 MMOL/L (3.5-5.1); SODIUM LEVEL 140 MMOL/L (136-145)
== END ==
LOC: M LAB 14:33
PROVIDERS: ATTEND Internal Medicine Rheumatology
DX: H04.123 Dry eye syndrome of bilateral lacrimal glands (principal); R76.8 Other specified abnormal immunological findings in serum; R63.4 Abnormal weight loss; Z72.0 Tobacco use

== ENCOUNTER → 2025-07-16 | Outpatient (CLI) | payer MEDICARE, MEDICAID | LOC: M PLARAD 13:37 | PROVIDERS: ATTEND Student in an Organized Health Care Education/Training Program | DX: S63.635A Sprain of interphalangeal joint of left ring finger, initial encounter (principal); X58.XXXA Exposure to other specified factors, initial encounter; Y92.9 Unspecified place or not applicable; Y93.9 Activity, unspecified; Y99.9 Unspecified external cause status ==

== ENCOUNTER → 2025-09-01 | Outpatient (REF) | payer MEDICARE, MEDICAID ==
[2025-09-01 15:01] LABS: ALT/SGPT 16.0 U/L (7.0-40); AST/SGOT 13.0 U/L (<34); CALCIUM LEVEL 9.4 MG/DL (8.3-10.6); CARBON DIOXIDE LEVEL 28.0 MMOL/L (20-31); CHLORIDE LEVEL 104.0 MMOL/L (98-107); CHOLESTEROL LEVEL 162.0 MG/DL (<200); CHOLESTEROL RISK RATIO 3.59 (<5); CREATININE FOR GFR 0.89 MG/DL (0.55-1.30); GLOMERULAR FILTRATION RATE 73.7 (>45); LDL CHOLESTEROL 77.1 MG/DL (<100); NON-HDL-C 116.9 MG/DL; POTASSIUM SERUM 4.4 MMOL/L (3.5-5.1); SODIUM LEVEL 139.0 MMOL/L (136-145); TRIGLYCERIDES LEVEL 199.0 MG/DL (<150)
== END ==
LOC: M LAB REF 14:13
PROVIDERS: ATTEND Family Medicine Addiction Medicine
DX: Z20.6 Contact with and (suspected) exposure to human immunodeficiency virus [HIV] (principal); E03.9 Hypothyroidism, unspecified

== ENCOUNTER 2025-10-14 10:26 | Emergency (ER) | payer MEDICARE, MEDICAID ==
[~2025-10-14] VITALS: Ht 162.6 cm; Wt 68.1 kg
[2025-10-14 12:08] LABS: BASO # 0.0 10^3/uL (0.0-0.2); BASO % 0.4 % (0.0-1.0); EOS # 0.2 10^3/uL (0.0-0.5); EOS % 2.0 % (0.0-3.0); LYMPH # 2.2 10^3/uL (1.5-5.0); LYMPH % 29.4 % (24.0-44.0); MONO # 0.6 10^3/uL (0.0-0.8); MONO % 8.0 % (2.0-8.0); NEUTROPHILS # 4.5 10^3/uL (1.5-8.5); NEUTROPHILS % 60.1 % (36.0-66.0); PLATELET COUNT, AUTOMATED 345 10^3/uL (150-450)
[2025-10-14] MEDS: LIDOCAINE 1% MDV 20 ML VIAL SC STA (14:40)
[2025-10-14] MEDS ORDERED: IBUP600T42 PO (16:11)
[2025-10-14 16:22] VITALS: BP 137/78; TEMP 99.6; O2SAT 99
== END 2025-10-14 16:23 | disposition home or self-care (01) ==
LOC: M ED 10:26
DX: M25.551 Pain in right hip (principal); I11.9 Hypertensive heart disease without heart failure; E07.9 Disorder of thyroid, unspecified; Z79.899 Other long term (current) drug therapy; Z88.5 Allergy status to narcotic agent; Z88.6 Allergy status to analgesic agent; Z91.040 Latex allergy status

== ENCOUNTER → 2025-11-04 | Outpatient (REF) | payer MEDICARE ==
[~2025-11-04] MED LIST changes: +IBUP600T42 PO
[2025-11-04 15:18] LABS: BASO # 0.0 10^3/uL (0.0-0.2); BASO % 0.6 % (0.0-1.0); EOS # 0.1 10^3/uL (0.0-0.5); EOS % 1.7 % (0.0-3.0); LYMPH # 1.7 10^3/uL (1.5-5.0); LYMPH % 24.4 % (24.0-44.0); MONO # 0.6 10^3/uL (0.0-0.8); MONO % 8.4 % (2.0-8.0); NEUTROPHILS # 4.4 10^3/uL (1.5-8.5); NEUTROPHILS % 64.6 % (36.0-66.0); PLATELET COUNT, AUTOMATED 292 10^3/uL (150-450)
[2025-11-04 15:49] LABS: C REACTIVE PROTEIN QUANTITATIV < 0.50 MG/DL (<1.0)
[2025-11-04 15:50] LABS: ALT/SGPT 27 U/L (7.0-40); AST/SGOT 20 U/L (<34); CALCIUM LEVEL 9.4 MG/DL (8.3-10.6); CARBON DIOXIDE LEVEL 26 MMOL/L (20-31); CHLORIDE LEVEL 108 MMOL/L (98-107); CREATININE FOR GFR 0.77 MG/DL (0.55-1.30); GLOMERULAR FILTRATION RATE 87.7 (>45); POTASSIUM SERUM 4.2 MMOL/L (3.5-5.1); SODIUM LEVEL 143 MMOL/L (136-145)
== END ==
LOC: M SFHCRHEU 10:15
PROVIDERS: ATTEND Internal Medicine Rheumatology
DX: M05.9 Rheumatoid arthritis with rheumatoid factor, unspecified (principal)